=== PATIENT | female | born 1990 | race African-American/Black ===

== ENCOUNTER 2020-01-11 22:23 | Inpatient (IN) | payer SELFPAY ==
[2020-01-11] MEDS ORDERED: Oxytocin/0.9 % Sodium Chloride 30 UNIT/500 ML BAG IV SCH (22:30)
[2020-01-11] MEDS ORDERED: Carboprost Tromethamine 250 MCG/1 ML Amp IM PRN (22:30)
[2020-01-11] MEDS ORDERED: Sodium Chloride 0.9% 2.5 ML Syringe FLUSH PRN (22:30)
[2020-01-11] MEDS ORDERED: Sodium Chloride 0.9% 10 ML SDV IV PRN (22:30)
[2020-01-11] MEDS ORDERED: Nalbuphine 10 MG/1 ML Vial IVPUSH PRN (22:30)
[2020-01-11] MEDS ORDERED: Butorphanol 1 MG/ML SDV IVPUSH PRN (22:30)
[2020-01-11] MEDS ORDERED: Sodium Chloride 0.9% 10 ML Syringe FLUSH PRN (22:30)
[2020-01-11] MEDS ORDERED: Ondansetron 4 MG/2 ML SDV IVPUSH PRN (22:30)
[2020-01-11] MEDS ORDERED: Tranexamic Acid 1,000 MG in Sodium Chloride 0.9% 100 ML IV PRN (22:30)
[2020-01-11] MEDS ORDERED: Misoprostol 200 MCG Tab PO PRN (22:30)
[2020-01-11] MEDS ORDERED: Water For Irrigation,Sterile 1,000 ML Container IRR PRN (22:30)
[2020-01-11] MEDS ORDERED: Lidocaine 1% 50 ML MDV INJECT PRN (22:30)
[2020-01-11] MEDS ORDERED: Methylergonovine 0.2 MG/1 ML Amp IM PRN (22:30)
[2020-01-11] MEDS: Lactated Ringers 1,000 ML IV SCH ×2 (22:30→23:40)
[2020-01-11] MEDS ORDERED: Oxytocin/0.9 % Sodium Chloride 30 UNIT/500 ML BAG ONE (22:44)
[2020-01-11] MEDS ORDERED: fentaNYL 100 MCG/2 ML SDV ONE (22:47)
[2020-01-11] MEDS ORDERED: Bupivicaine/fentaNYL/NS 0 ML ONE (22:48)
[2020-01-11] MEDS ORDERED: Lidocaine 1% 50 ML MDV ONE (23:16)
--- NOTE | 2020-01-12 00:10 | PCM.PREANE ---
Preanesthetic Assessment - Procedure Proposed Procedure: Continuous Labor Epidural - Anesthesia/Transfusion/Family Hx Anesthesia History: No Prior Anesthesia Family History of Anesthesia Reaction: No - Review of Systems General: No Symptoms Pulmonary: No Symptoms Cardiovascular: No Symptoms Gastrointestinal: No Symptoms Neurological: No Symptoms Other: Reports: None - Physical Assessment Height: 5 ft 5 in ASA Class: 2 Mental Status: Alert & Oriented x3 Airway Class: Mallampati = 2 Dentition: Reports: Normal Dentition Thyro-Mental Finger Breadths: 3 Mouth Opening Finger Breadths: 3 ROM/Head Extension: Full Lungs: Clear to Auscultation, Normal Respiratory Effort Cardiovascular: Regular Rate, Regular Rhythm - Lab Values: Laboratory Last Values WBC 10.11 K/uL (4.0-11.0) 01/11/20 22:45 RBC 3.83 M/uL (4.30-5.90) L 01/11/20 22:45 Hgb 12.2 g/dL (12.0-16.0) 01/11/20 22:45 Hct 36.2 % (36.0-46.0) 01/11/20 22:45 MCV 94.5 fL (80.0-98.0) 01/11/20 22:45 MCH 31.9 pg (27.0-32.0) 01/11/20 22:45 MCHC 33.7 g/dL (31.0-37.0) 01/11/20 22:45 RDW Std Deviation 52.8 fl (28.0-62.0) 01/11/20 22:45 RDW Coeff of Erik 15 % (11.0-15.0) 01/11/20 22:45 Plt Count 222 K/uL (150-400) 01/11/20 22:45 MPV 10.50 fL (7.40-12.00) 01/11/20 22:45 Nucleated RBC % 0.0 /100WBC 01/11/20 22:45 Nucleated RBCs # 0 K/uL 01/11/20 22:45 COVID-19 (NASIM) NEGATIVE (NEGATIVE) 01/11/20 22:26 Blood Type O POSITIVE 01/11/20 22:48 Antibody Screen NEGATIVE 01/11/20 22:48 - Allergies Allergies/Adverse Reactions: Allergies Allergy/AdvReac Type Severity Reaction Status Date / Time No Known Allergies Allergy Verified 01/12/20 00:08 - Anesthesia Plan Free Text/Narrative:: Continuous Labor Epidural - Acknowledgements Anesthesia Type Planned: Epidural Pt an Appropriate Candidate for the Planned Anesthesia: Yes Alternatives and Risks of Anesthesia Discussed w Pt/Guardian: Yes Pt/Guardian Understands and Agrees with Anesthesia Plan: Yes PreAnesthesia Questionnaire - Past Health History Medical/Surgical History: Denies Medical/Surgical History HEENT History: Reports: None Cardiovascular History: Reports: None Respiratory History: Reports: None Gastrointestinal History: Reports: None Genitourinary History: Reports: None [employer] History: Reports: : 2 Para: 1 LMP (Approximate): Musculoskeletal History: Reports: None Neurological History: Reports: None Psychiatric History: Reports: None Endocrine/Metabolic History: Reports: None Hematologic History: Reports: None Immunologic History: Reports: None Oncologic (Cancer) History: Reports: None Dermatologic History: Reports: None - Infectious Disease History Infectious Disease History: Reports: None - SUBSTANCE USE Smoking Status *Q: Never Smoker - CURRENT (IN HOUSE) MEDS Current Meds: Current Medications Butorphanol Tartrate (Stadol) 1 mg IVPUSH Q1H PRN PRN Reason: Pain Carboprost Tromethamine (Hemabate Ds) 250 mcg IM ASDIRECTED PRN PRN Reason: Post Hemorrhage Lactated Ringer's (Ringers, Lactated) 1,000 mls @ 150 mls/hr IV ASDIRECTED [facility] Last Admin: 01/11/20 23:40 Dose: 999 mls/hr Documented by: Oxytocin/Sodium Chloride (Oxytocin 30 Unit/500 Ml-Ns) 30 unit in 500 mls @ 999 mls/hr IV TITRATE [facility] Tranexamic Acid 1,000 mg/ (Sodium Chloride) 110 mls @ 660 mls/hr IV ONETIME PRN PRN Reason: Bleeding Lidocaine HCl (Xylocaine 1%) 50 ml INJECT ONETIME PRN PRN Reason: Laceration repair Methylergonovine Maleate (Methergine) 0.2 mg IM ASDIRECTED PRN PRN Reason: Post Hemorrhage Misoprostol (Cytotec) 200 mcg PO ONETIME PRN PRN Reason: Post Hemorrhage Nalbuphine HCl (Nubain) 10 mg IVPUSH Q1H PRN PRN Reason: Pain (severe 7-10) Ondansetron HCl (Zofran) 4 mg IVPUSH Q4H PRN PRN Reason: Nausea/Vomiting Sodium Chloride (Saline Flush) 10 ml FLUSH ASDIRECTED PRN PRN Reason: Keep Vein Open Sodium Chloride (Saline Flush) 2.5 ml FLUSH ASDIRECTED PRN PRN Reason: Keep Vein Open Sodium Chloride (Normal Saline) 10 ml IV ASDIRECTED PRN PRN Reason: IV Use Sterile Water (Sterile Water For Irrigation) 1,000 ml IRR ASDIRECTED PRN PRN Reason: delivery Discontinued Medications Ephedrine Sulfate (Emerphed) Confirm Administered Dose 50 mg .ROUTE .STDUHEM-MED ONE Stop: 01/11/20 23:39 Fentanyl (Sublimaze) Confirm Administered Dose 100 mcg .ROUTE .Purple Blue Bo-MED ONE Stop: 01/11/20 22:48 Oxytocin/Sodium Chloride (Oxytocin 30 Unit/500 Ml-Ns) Confirm Administered Dose 30 unit in 500 mls @ as directed .ROUTE .UCampusMED ONE Stop: 01/11/20 22:45 Fentanyl/Bupivacaine HCl (Fentanyl/Bupivacaine/Ns 2 Mcg-0.125% 250 Ml) Confirm Administered Dose 250 mls @ as directed .ROUTE .STDUHEM-MED ONE Stop: 01/11/20 22:49 Lidocaine HCl (Xylocaine 1%) Confirm Administered Dose 50 ml .ROUTE .STDUHEM-MED ONE Stop: 01/11/20 23:17
[2020-01-12] MEDS ORDERED: Witch Hazel Medicated Pads 40/Jar TOP PRN (01:07)
[2020-01-12] MEDS ORDERED: Bisacodyl 10 MG Supp RECTAL PRN (01:07)
[2020-01-12] MEDS ORDERED: Acetaminophen 500 MG Tab PO PRN ×2 (01:07)
[2020-01-12] MEDS ORDERED: Ibuprofen 400 MG Tab PO PRN (01:07)
[2020-01-12] MEDS ORDERED: Lanolin 100% Cream 7 GM Tube TOP PRN (01:07)
[2020-01-12] MEDS ORDERED: Benzocaine/Menthol 20%-0.5% Spray 78 GM Cannister TOP PRN (01:07)
[2020-01-12] MEDS ORDERED: Docusate Sodium 100 MG Cap PO PRN (01:07)
--- NOTE | 2020-01-12 01:07 | PCM.DEL ---
<Jillian Mendosa - Last Filed: 01/12/20 01:03> L & D Note - General Info Date of Service: 01/12/20 - Delivery Note Labor: Spontaneous Delivery Outcome: Livebirth Delivery Method: Spontaneous Vaginal Delivery-Single Delivery Mode: Spontaneous Presentation: Right Occiput Anterior (OSWALDO) Nuchal Cord: None Amniotic Fluid Description: Clear Episiotomy Type: None Laceration: None Placenta: Intact, Spontaneous Cord: 3 Vessels Estimated Blood Loss: 300 Resuscitation Needed: No : Bulb Syringe, Stimulated, Gulliver Used Score 1 min: 8 Score 5 min: 9 Second Stage Interventions: Reports: Pushing Effectively - General Info Date of Service: 01/12/20 - Patient Data Lab Results Last 24 Hours: Laboratory Results - last 24 hr 01/11/20 01/11/20 01/11/20 Range/Units 22:26 22:45 22:48 WBC 10.11 (4.0-11.0) K/uL RBC 3.83 L (4.30-5.90) M/uL Hgb 12.2 (12.0-16.0) g/dL Hct 36.2 (36.0-46.0) % MCV 94.5 (80.0-98.0) fL MCH 31.9 (27.0-32.0) pg MCHC 33.7 (31.0-37.0) g/dL RDW Std Deviation 52.8 (28.0-62.0) fl RDW Coeff of Erik 15 (11.0-15.0) % Plt Count 222 (150-400) K/uL MPV 10.50 (7.40-12.00) fL Nucleated RBC % 0.0 /100WBC Nucleated RBCs # 0 K/uL COVID-19 (NASIM) NEGATIVE (NEGATIVE) Blood Type O POSITIVE Antibody Screen NEGATIVE Med Orders - Current: Current Medications Butorphanol Tartrate (Stadol) 1 mg IVPUSH Q1H PRN PRN Reason: Pain Carboprost Tromethamine (Hemabate Ds) 250 mcg IM ASDIRECTED PRN PRN Reason: Post Hemorrhage Lactated Ringer's (Ringers, Lactated) 1,000 mls @ 150 mls/hr IV ASDIRECTED [facility] Last Admin: 01/11/20 23:40 Dose: 999 mls/hr Documented by: Oxytocin/Sodium Chloride (Oxytocin 30 Unit/500 Ml-Ns) 30 unit in 500 mls @ 999 mls/hr IV TITRATE [facility] Last Admin: 01/12/20 00:53 Dose: 999 mls/hr Documented by: Tranexamic Acid 1,000 mg/ (Sodium Chloride) 110 mls @ 660 mls/hr IV ONETIME PRN PRN Reason: Bleeding Lidocaine HCl (Xylocaine 1%) 50 ml INJECT ONETIME PRN PRN Reason: Laceration repair Methylergonovine Maleate (Methergine) 0.2 mg IM ASDIRECTED PRN PRN Reason: Post Hemorrhage Misoprostol (Cytotec) 200 mcg PO ONETIME PRN PRN Reason: Post Hemorrhage Nalbuphine HCl (Nubain) 10 mg IVPUSH Q1H PRN PRN Reason: Pain (severe 7-10) Ondansetron HCl (Zofran) 4 mg IVPUSH Q4H PRN PRN Reason: Nausea/Vomiting Sodium Chloride (Saline Flush) 10 ml FLUSH ASDIRECTED PRN PRN Reason: Keep Vein Open Sodium Chloride (Saline Flush) 2.5 ml FLUSH ASDIRECTED PRN PRN Reason: Keep Vein Open Sodium Chloride (Normal Saline) 10 ml IV ASDIRECTED PRN PRN Reason: IV Use Sterile Water (Sterile Water For Irrigation) 1,000 ml IRR ASDIRECTED PRN PRN Reason: delivery Discontinued Medications Ephedrine Sulfate (Emerphed) Confirm Administered Dose 50 mg .ROUTE .STK-MED ONE Stop: 01/11/20 23:39 Fentanyl (Sublimaze) Confirm Administered Dose 100 mcg .ROUTE .STK-MED ONE Stop: 01/11/20 22:48 Oxytocin/Sodium Chloride (Oxytocin 30 Unit/500 Ml-Ns) Confirm Administered Dose 30 unit in 500 mls @ as directed .ROUTE .STK-MED ONE Stop: 01/11/20 22:45 Fentanyl/Bupivacaine HCl (Fentanyl/Bupivacaine/Ns 2 Mcg-0.125% 250 Ml) Confirm Administered Dose 250 mls @ as directed .ROUTE .STK-MED ONE Stop: 01/11/20 22:49 Lidocaine HCl (Xylocaine 1%) Confirm Administered Dose 50 ml .ROUTE .STK-MED ONE Stop: 01/11/20 23:17 - Problem List & Annotations (1) Vaginal delivery SNOMED Code(s): 492306140 Code(s): O80 - ENCOUNTER FOR FULL-TERM UNCOMPLICATED DELIVERY Status: Acute Current Visit: Yes - Problem List Review Problem List Initiated/Reviewed/Updated: Yes - Assessment Assessment:: 29yo female s/p - Plan Plan:: -routine post care - <Tammy Rojas - Last Filed: 01/12/20 01:11> L & D Note - Delivery Note Provider: Tammy Rojas Delivery Comments (Free Text/Narrative):: 3500 gm - Patient Data Lab Results Last 24 Hours: Laboratory Results - last 24 hr 01/11/20 01/11/20 01/11/20 Range/Units 22:26 22:45 22:48 WBC 10.11 (4.0-11.0) K/uL RBC 3.83 L (4.30-5.90) M/uL Hgb 12.2 (12.0-16.0) g/dL Hct 36.2 (36.0-46.0) % MCV 94.5 (80.0-98.0) fL MCH 31.9 (27.0-32.0) pg MCHC 33.7 (31.0-37.0) g/dL RDW Std Deviation 52.8 (28.0-62.0) fl RDW Coeff of Erik 15 (11.0-15.0) % Plt Count 222 (150-400) K/uL MPV 10.50 (7.40-12.00) fL Nucleated RBC % 0.0 /100WBC Nucleated RBCs # 0 K/uL COVID-19 (NASIM) NEGATIVE (NEGATIVE) Blood Type O POSITIVE Antibody Screen NEGATIVE Med Orders - Current: Current Medications Acetaminophen (Tylenol Extra Strength) 500 mg PO Q4H PRN PRN Reason: Pain Acetaminophen (Tylenol Extra Strength) 1,000 mg PO Q4H PRN PRN Reason: Pain Benzocaine/Menthol (Dermoplast Pain Relief 20%-0.5% [place]) 78 gm TOP ASDIRECTED PRN PRN Reason: Perineal Comfort Measure Bisacodyl (Dulcolax) 10 mg RECTAL ONETIME PRN PRN Reason: Constipation Carboprost Tromethamine (Hemabate Ds) 250 mcg IM ASDIRECTED PRN PRN Reason: Post Hemorrhage Docusate Sodium (Colace) 100 mg PO BID PRN PRN Reason: Constipation Emollient Ointment (Lansinoh Hpa) 0 gm TOP ASDIRECTED PRN PRN Reason: Sore Nipples Lactated Ringer's (Ringers, Lactated) 1,000 mls @ 150 mls/hr IV ASDIRECTED REPLACED BY [facility] Last Admin: 01/11/20 23:40 Dose: 999 mls/hr Documented by: Oxytocin/Sodium Chloride (Oxytocin 30 Unit/500 Ml-Ns) 30 unit in 500 mls @ 999 mls/hr IV TITRATE REPLACED BY [facility] Last Admin: 01/12/20 00:53 Dose: 999 mls/hr Documented by: Tranexamic Acid 1,000 mg/ (Sodium Chloride) 110 mls @ 660 mls/hr IV ONETIME PRN PRN Reason: Bleeding Ibuprofen (Motrin) 400 mg PO Q4H PRN PRN Reason: Pain Ibuprofen (Motrin) 800 mg PO Q6H PRN PRN Reason: Pain Lidocaine HCl (Xylocaine 1%) 50 ml INJECT ONETIME PRN PRN Reason: Laceration repair Methylergonovine Maleate (Methergine) 0.2 mg IM ASDIRECTED PRN PRN Reason: Post Hemorrhage Nalbuphine HCl (Nubain) 10 mg IVPUSH Q1H PRN PRN Reason: Pain (severe 7-10) Ondansetron HCl (Zofran) 4 mg IVPUSH Q4H PRN PRN Reason: Nausea/Vomiting Oxycodone HCl (Oxycodone) 5 mg PO Q2H PRN PRN Reason: Pain Sodium Chloride (Saline Flush) 10 ml FLUSH ASDIRECTED PRN PRN Reason: Keep Vein Open Sodium Chloride (Saline Flush) 2.5 ml FLUSH ASDIRECTED PRN PRN Reason: Keep Vein Open Sodium Chloride (Normal Saline) 10 ml IV ASDIRECTED PRN PRN Reason: IV Use Sterile Water (Sterile Water For Irrigation) 1,000 ml IRR ASDIRECTED PRN PRN Reason: delivery Witch Nena (Tucks) 1 pad TOP ASDIRECTED PRN PRN Reason: comfort care Discontinued Medications Butorphanol Tartrate (Stadol) 1 mg IVPUSH Q1H PRN PRN Reason: Pain Ephedrine Sulfate (Emerphed) Confirm Administered Dose 50 mg .ROUTE .STK-MED ONE Stop: 01/11/20 23:39 Fentanyl (Sublimaze) Confirm Administered Dose 100 mcg .ROUTE .STK-MED ONE Stop: 01/11/20 22:48 Oxytocin/Sodium Chloride (Oxytocin 30 Unit/500 Ml-Ns) Confirm Administered Dose 30 unit in 500 mls @ as directed .ROUTE .STK-MED ONE Stop: 01/11/20 22:45 Fentanyl/Bupivacaine HCl (Fentanyl/Bupivacaine/Ns 2 Mcg-0.125% 250 Ml) Confirm Administered Dose 250 mls @ as directed .ROUTE .STK-MED ONE Stop: 01/11/20 22:49 Lidocaine HCl (Xylocaine 1%) Confirm Administered Dose 50 ml .ROUTE .STK-MED ONE Stop: 01/11/20 23:17 Misoprostol (Cytotec) 200 mcg PO ONETIME PRN PRN Reason: Post Hemorrhage - Problem List & Annotations (1) Vaginal delivery SNOMED Code(s): 772724023 Code(s): O80 - ENCOUNTER FOR FULL-TERM UNCOMPLICATED DELIVERY Status: Acute Current Visit: Yes - Problem List Review Problem List Initiated/Reviewed/Updated: Yes - My Orders Last 24 Hours: My Active Orders 01/11/20 22:30 Carboprost Tromethamine [Hemabate DS] 250 mcg IM ASDIRECTED PRN Lactated Ringers [Ringers, Lactated] 1,000 ml IV ASDIRECTED Lidocaine 1% [Xylocaine 1%] 50 ml INJECT ONETIME PRN Methylergonovine [Methergine] 0.2 mg IM ASDIRECTED PRN Nalbuphine [Nubain] 10 mg IVPUSH Q1H PRN Ondansetron [Zofran] 4 mg IVPUSH Q4H PRN Oxytocin/0.9 % Sodium Chloride [Oxytocin 30 Unit/500 ML-NS] 30 unit in 500 ml IV TITRATE Sodium Chloride 0.9% [Normal Saline] 10 ml IV ASDIRECTED PRN Sodium Chloride 0.9% [Saline Flush] 10 ml FLUSH ASDIRECTED PRN Sodium Chloride 0.9% [Saline Flush] 2.5 ml FLUSH ASDIRECTED PRN Tranexamic Acid [Cyklokapron] 1,000 mg Sodium Chloride 0.9% [Normal Saline] 100 ml IV ONETIME Water For Irrigation,Sterile [Sterile Water for Irrigation] 1,000 ml IRR ASDIRECTED PRN Resuscitation Status Routine 01/11/20 22:31 Patient Status [ADT] Routine May Shower [RC] ASDIRECTED Notify Provider [RC] PRN Up ad Martha [RC] ASDIRECTED Vital Signs [RC] PER UNIT ROUTINE Peripheral IV Insertion Adult [OM.PC] Routine 01/11/20 22:45 RPR (SYPHILIS SERO) W/ RFLX [REF] Routine 01/12/20 01:07 Notify Provider Vital Signs [RC] ASDIRECTED Acetaminophen [Tylenol Extra Strength] 1,000 mg PO Q4H PRN Acetaminophen [Tylenol Extra Strength] 500 mg PO Q4H PRN Benzocaine/Menthol [Dermoplast Pain Relief 20%-0.5% [place]] 78 gm TOP ASDIRECTED PRN Docusate Sodium [Colace] 100 mg PO BID PRN Ibuprofen [Motrin] 400 mg PO Q4H PRN Ibuprofen [Motrin] 800 mg PO Q6H PRN Lanolin [Lansinoh HPA] See Dose Instructions TOP ASDIRECTED PRN bisacodyL [Dulcolax] 10 mg RECTAL ONETIME PRN oxyCODONE 5 mg PO Q2H PRN witch Nena [Tucks] 1 pad TOP ASDIRECTED PRN 01/12/20 01:08 Patient Status [ADT] Routine May Shower [RC] ASDIRECTED Up ad Martha [RC] ASDIRECTED Vital Signs [RC] PER UNIT ROUTINE Assess Lochia [WOMSER] Per Unit Routine Assess Uterine Involution [WOMSER] Per Unit Routine Ice Therapy [OM.PC] Per Unit Routine Perineal Care [OM.PC] Per Unit Routine Peripheral IV Discontinue [OM.PC] Routine Sitz Bath [OM.PC] Per Unit Routine 01/12/20 01:09 Cooling Warming Measures [RC] ASDIRECTED BLOOD GAS ARTERIAL UMBILICAL [BG] Routine BLOOD GAS VENOUS UMBILICAL [BG] Routine 01/12/20 Breakfast Regular Diet [DIET] 01/12/20 15:00 HEMOGLOBIN/HEMATOCRIT,HH [HEME] Routine
--- NOTE | 2020-01-12 08:47 | OR ---
SURGEON: Tammy Rojas M.D. DATE OF PROCEDURE: 01/12/2020 PREOPERATIVE DIAGNOSES: 1. A 40-2/7 weeks' gestational age. 2. Labor. POSTOPERATIVE DIAGNOSES: 1. A 40-2/7 weeks' gestational age. 2. Labor. PROCEDURE: Spontaneous vaginal delivery, intact perineum. PRIMARY SURGEON: Tammy Rojas M.D. FUND DIRECTOR: Jillian Mendosa, MS4 ANESTHESIA: Epidural. ESTIMATED BLOOD LOSS: 300 mL. COMPLICATIONS: None known. FINDINGS: Viable male. score 8 at one minute and 9 at five minutes. Weight of 3500 g. Spontaneous delivery, intact placenta, 3-vessel cord. DISPOSITION: Infant to nursery, mom in LDRP, stable. PROCEDURE DETAILS: Joann is a 29-year-old, G2, P1, at 40-2/7 weeks' gestational age who presents on the evening of 01/11/2020 with regular contractions. On initial examination, she was found to be 8 cm. She was admitted. Routine labs drawn. IV hydration was initiated. She underwent regional anesthesia in the form of epidural, became more comfortable, and quickly progressed to complete. She began pushing efforts, and pushed readily to a +2 station. I was called for delivery. heart tones 120s. She continued with pushing efforts, had spontaneous rupture of membranes with light meconium fluid noted to be present. With continued pushing efforts, she was able to push to a +3 station, followed by delivery of the 's head, anterior shoulder, posterior shoulder, remainder of body without difficulty. Infant's oropharynx and nares were bulb suctioned. was handed off to his mother, attending nursery staff and Respiratory Therapy at her side. After a delay, cord was clamped x2 and cut. Cord arterial, cord venous, cord blood sampling obtained. Light pressure was applied while the placenta was delivered spontaneously intact. Vigorous fundal uterine massage was then applied while 30 units of Pitocin was delivered in 500 mL of IV fluid. Upon inspection of cervix, vaginal sidewall, and perineum, these were found to be intact. The patient has tolerated the procedure well overall. She will remain in LDRP in stable condition, infant to nursery. CIARAN / FLOWER /[id number]
--- NOTE | 2020-01-12 09:38 | PCM48HPAN ---
Post Anesthesia Note - EVALUATION WITHIN 48HRS OF ANESTHETIC Vital Signs in Normal Range: Yes Patient Participated in Evaluation: No (Patient sleeping. present.) Respiratory Function Stable: Yes Airway Patent: Yes Cardiovascular Function Stable: Yes Hydration Status Stable: Yes Pain Control Satisfactory: Yes Nausea and Vomiting Control Satisfactory: Yes Mental Status Recovered: Yes - COMMENTS/OBSERVATIONS Free Text/Narrative:: Patient sleeping. present and said patient had complaint of back discomfort but otherwise without complications. Reinforced that the discomfort is very common with epidural placement and should improved each day. Encouraged to reach out to anesthesia while in the hospital if there are any other concerns or worsening issues related to the epidural or pain control. If after discharge, encouraged to seek out OB provider should there be any further concerns or worsening symptoms. No further questions or concerns at this time.
[2020-01-12] MEDS: Ibuprofen 800 MG Tab PO PRN ×2 (12:52→22:08)
[2020-01-12] MEDS: Amoxicillin/Clavulanate K 875-125 MG Tab PO SCH ×2 (12:52→23:14)
[2020-01-12] MEDS: oxyCODONE 5 MG Tab PO PRN ×2 (16:58→23:13)
[2020-01-13] MEDS: Ibuprofen 800 MG Tab PO PRN ×2 (04:31→14:29)
--- NOTE | 2020-01-13 07:54 | PCM48HPAN ---
Post Anesthesia Note - EVALUATION WITHIN 48HRS OF ANESTHETIC Vital Signs in Normal Range: Yes Patient Participated in Evaluation: Yes Airway Patent: Yes Cardiovascular Function Stable: Yes Hydration Status Stable: Yes Pain Control Satisfactory: Yes Nausea and Vomiting Control Satisfactory: Yes Mental Status Recovered: Yes Vital Signs: Last Vital Signs Temp 36.8 C 01/13/20 04:31 Pulse 89 01/13/20 04:31 Resp 16 01/13/20 04:31 BP 87/54 L 01/13/20 04:31 Pulse Ox 99 01/13/20 04:31 - COMMENTS/OBSERVATIONS Free Text/Narrative:: Anes Note Post Post dural puncture headache. Patient reports mild headache this morning. 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
--- NOTE | 2020-01-13 08:40 | PCM.PNPP ---
<Saw Tillman - Last Filed: 01/13/20 08:35> - General Info Date of Service: 01/13/20 Functional Status: Reports: Pain Controlled - Review of Systems General: Reports: No Symptoms HEENT: Reports: No Symptoms Pulmonary: Reports: No Symptoms Cardiovascular: Reports: No Symptoms Gastrointestinal: Reports: No Symptoms Genitourinary: Reports: No Symptoms Musculoskeletal: Reports: No Symptoms Skin: Reports: No Symptoms Neurological: Reports: No Symptoms Psychiatric: Reports: No Symptoms - General Info Date of Service: 01/13/20 - Patient Data Vital Signs - Most Recent: Last Vital Signs Temp 36.6 C 01/13/20 08:00 Pulse 80 01/13/20 08:00 Resp 12 01/13/20 08:00 BP 108/89 01/13/20 08:00 Pulse Ox 98 01/13/20 08:00 Weight - Most Recent: 76.204 kg I&O - Last 24 Hours: Intake & Output 01/12/20 01/13/20 01/13/20 22:59 06:59 14:59 Intake Total 300 Output Total 250 Balance 50 Med Orders - Current: Current Medications Acetaminophen (Tylenol Extra Strength) 500 mg PO Q4H PRN PRN Reason: Pain Acetaminophen (Tylenol Extra Strength) 1,000 mg PO Q4H PRN PRN Reason: Pain Last Admin: 01/13/20 04:31 Dose: 1,000 mg Documented by: Amoxicillin/Clavulanate Potassium (Augmentin 875 Mg/125 Mg) 1 tab PO Q12HR RANDY Last Admin: 01/12/20 23:14 Dose: 1 tab Documented by: Benzocaine/Menthol (Dermoplast Pain Relief 20%-0.5% [place]) 78 gm TOP ASDIRECTED PRN PRN Reason: Perineal Comfort Measure Bisacodyl (Dulcolax) 10 mg RECTAL ONETIME PRN PRN Reason: Constipation Carboprost Tromethamine (Hemabate Ds) 250 mcg IM ASDIRECTED PRN PRN Reason: Post Hemorrhage Docusate Sodium (Colace) 100 mg PO BID PRN PRN Reason: Constipation Emollient Ointment (Lansinoh Hpa) 0 gm TOP ASDIRECTED PRN PRN Reason: Sore Nipples Lactated Ringer's (Ringers, Lactated) 1,000 mls @ 150 mls/hr IV ASDIRECTED [facility] Last Admin: 01/11/20 23:40 Dose: 999 mls/hr Documented by: Oxytocin/Sodium Chloride (Oxytocin 30 Unit/500 Ml-Ns) 30 unit in 500 mls @ 999 mls/hr IV TITRATE [facility] Last Admin: 01/12/20 00:53 Dose: 999 mls/hr Documented by: Tranexamic Acid 1,000 mg/ (Sodium Chloride) 110 mls @ 660 mls/hr IV ONETIME PRN PRN Reason: Bleeding Ibuprofen (Motrin) 400 mg PO Q4H PRN PRN Reason: Pain Ibuprofen (Motrin) 800 mg PO Q6H PRN PRN Reason: Pain Last Admin: 01/13/20 04:31 Dose: 800 mg Documented by: Lidocaine HCl (Xylocaine 1%) 50 ml INJECT ONETIME PRN PRN Reason: Laceration repair Methylergonovine Maleate (Methergine) 0.2 mg IM ASDIRECTED PRN PRN Reason: Post Hemorrhage Nalbuphine HCl (Nubain) 10 mg IVPUSH Q1H PRN PRN Reason: Pain (severe 7-10) Ondansetron HCl (Zofran) 4 mg IVPUSH Q4H PRN PRN Reason: Nausea/Vomiting Oxycodone HCl (Oxycodone) 5 mg PO Q2H PRN PRN Reason: Pain Last Admin: 01/12/20 23:13 Dose: 5 mg Documented by: Sodium Chloride (Saline Flush) 10 ml FLUSH ASDIRECTED PRN PRN Reason: Keep Vein Open Sodium Chloride (Saline Flush) 2.5 ml FLUSH ASDIRECTED PRN PRN Reason: Keep Vein Open Sodium Chloride (Normal Saline) 10 ml IV ASDIRECTED PRN PRN Reason: IV Use Sterile Water (Sterile Water For Irrigation) 1,000 ml IRR ASDIRECTED PRN PRN Reason: delivery Witch Nena (Tucks) 1 pad TOP ASDIRECTED PRN PRN Reason: comfort care Discontinued Medications Butorphanol Tartrate (Stadol) 1 mg IVPUSH Q1H PRN PRN Reason: Pain Ephedrine Sulfate (Emerphed) Confirm Administered Dose 50 mg .ROUTE .STK-MED ONE Stop: 01/11/20 23:39 Last Admin: 01/12/20 17:48 Dose: Not Given Documented by: Fentanyl (Sublimaze) Confirm Administered Dose 100 mcg .ROUTE .STK-MED ONE Stop: 01/11/20 22:48 Last Admin: 01/12/20 17:47 Dose: Not Given Documented by: Oxytocin/Sodium Chloride (Oxytocin 30 Unit/500 Ml-Ns) Confirm Administered Dose 30 unit in 500 mls @ as directed .ROUTE .STK-MED ONE Stop: 01/11/20 22:45 Last Admin: 01/12/20 10:38 Dose: Not Given Documented by: Fentanyl/Bupivacaine HCl (Fentanyl/Bupivacaine/Ns 2 Mcg-0.125% 250 Ml) Confirm Administered Dose 250 mls @ as directed .ROUTE .STK-MED ONE Stop: 01/11/20 22:49 Last Admin: 01/12/20 17:47 Dose: Not Given Documented by: Lidocaine HCl (Xylocaine 1%) Confirm Administered Dose 50 ml .ROUTE .STK-MED ONE Stop: 01/11/20 23:17 Last Admin: 01/12/20 17:48 Dose: Not Given Documented by: Misoprostol (Cytotec) 200 mcg PO ONETIME PRN PRN Reason: Post Hemorrhage - Infant Interaction Disposition, : [place] in Room with Family Infant Interaction: Holding Infant Feeding: Attempted ; Nursed Fair/Poor, Bottle Fed Support Person: - Recovery Exam Fundal Tone: Firm Fundal Level: At Umbilicus Fundal Placement: Midline Lochia Amount: Scant, Small Lochia Color: Rubra/Red Perineum Description: Intact, Minimal Bruising/Swelling Episiotomy/Laceration: None Bladder Status: Voiding Urinary Elimination: Voided - Exam General: Alert, Oriented, Cooperative, No Acute Distress HEENT: Pupils Equal, Pupils Reactive, EOMI, Mucous Membr. Moist/[place] Neck: Supple, No JVD Lungs: Clear to Auscultation, Normal Respiratory Effort Cardiovascular: Regular Rate, Regular Rhythm GI/Abdominal Exam: Normal Bowel Sounds, Soft, Non-Tender, No Organomegaly Extremities: Normal Inspection, No Pedal Edema, Normal Capillary Refill Skin: Warm, Moist Neurological: No New Focal Deficit Psy/Mental Status: Alert, Normal Affect, Normal Mood - Problem List Review Problem List Initiated/Reviewed/Updated: Yes - Assessment Assessment:: 29yo female s/p - Plan Plan:: -Routine post care -Needs help applying for WIC <Mishel Carrera - Last Filed: 01/13/20 10:34> - General Info Functional Status: Reports: Tolerating Diet, Ambulating, Urinating - Patient Data Vital Signs - Most Recent: Last Vital Signs Temp 36.6 C 01/13/20 08:00 Pulse 80 01/13/20 08:00 Resp 12 01/13/20 08:00 BP 108/89 01/13/20 08:00 Pulse Ox 98 01/13/20 08:00 I&O - Last 24 Hours: Intake & Output 01/12/20 01/13/20 01/13/20 22:59 06:59 14:59 Intake Total 300 Output Total 250 Balance 50 Med Orders - Current: Current Medications Acetaminophen (Tylenol Extra Strength) 500 mg PO Q4H PRN PRN Reason: Pain Acetaminophen (Tylenol Extra Strength) 1,000 mg PO Q4H PRN PRN Reason: Pain Last Admin: 01/13/20 04:31 Dose: 1,000 mg Documented by: Amoxicillin/Clavulanate Potassium (Augmentin 875 Mg/125 Mg) 1 tab PO Q12HR [facility] Last Admin: 01/12/20 23:14 Dose: 1 tab Documented by: Benzocaine/Menthol (Dermoplast Pain Relief 20%-0.5% [place]) 78 gm TOP ASDIRECTED PRN PRN Reason: Perineal Comfort Measure Bisacodyl (Dulcolax) 10 mg RECTAL ONETIME PRN PRN Reason: Constipation Carboprost Tromethamine (Hemabate Ds) 250 mcg IM ASDIRECTED PRN PRN Reason: Post Hemorrhage Docusate Sodium (Colace) 100 mg PO BID PRN PRN Reason: Constipation Emollient Ointment (Lansinoh Hpa) 0 gm TOP ASDIRECTED PRN PRN Reason: Sore Nipples Lactated Ringer's (Ringers, Lactated) 1,000 mls @ 150 mls/hr IV ASDIRECTED [facility] Last Admin: 01/11/20 23:40 Dose: 999 mls/hr Documented by: Oxytocin/Sodium Chloride (Oxytocin 30 Unit/500 Ml-Ns) 30 unit in 500 mls @ 999 mls/hr IV TITRATE [facility] Last Admin: 01/12/20 00:53 Dose: 999 mls/hr Documented by: Tranexamic Acid 1,000 mg/ (Sodium Chloride) 110 mls @ 660 mls/hr IV ONETIME PRN PRN Reason: Bleeding Ibuprofen (Motrin) 400 mg PO Q4H PRN PRN Reason: Pain Ibuprofen (Motrin) 800 mg PO Q6H PRN PRN Reason: Pain Last Admin: 01/13/20 04:31 Dose: 800 mg Documented by: Lidocaine HCl (Xylocaine 1%) 50 ml INJECT ONETIME PRN PRN Reason: Laceration repair Methylergonovine Maleate (Methergine) 0.2 mg IM ASDIRECTED PRN PRN Reason: Post Hemorrhage Nalbuphine HCl (Nubain) 10 mg IVPUSH Q1H PRN PRN Reason: Pain (severe 7-10) Ondansetron HCl (Zofran) 4 mg IVPUSH Q4H PRN PRN Reason: Nausea/Vomiting Oxycodone HCl (Oxycodone) 5 mg PO Q2H PRN PRN Reason: Pain Last Admin: 01/12/20 23:13 Dose: 5 mg Documented by: Sodium Chloride (Saline Flush) 10 ml FLUSH ASDIRECTED PRN PRN Reason: Keep Vein Open Sodium Chloride (Saline Flush) 2.5 ml FLUSH ASDIRECTED PRN PRN Reason: Keep Vein Open Sodium Chloride (Normal Saline) 10 ml IV ASDIRECTED PRN PRN Reason: IV Use Sterile Water (Sterile Water For Irrigation) 1,000 ml IRR ASDIRECTED PRN PRN Reason: delivery Witch Nena (Tucks) 1 pad TOP ASDIRECTED PRN PRN Reason: comfort care Discontinued Medications Butorphanol Tartrate (Stadol) 1 mg IVPUSH Q1H PRN PRN Reason: Pain Ephedrine Sulfate (Emerphed) Confirm Administered Dose 50 mg .ROUTE .STK-MED ONE Stop: 01/11/20 23:39 Last Admin: 01/12/20 17:48 Dose: Not Given Documented by: Fentanyl (Sublimaze) Confirm Administered Dose 100 mcg .ROUTE .STK-MED ONE Stop: 01/11/20 22:48 Last Admin: 01/12/20 17:47 Dose: Not Given Documented by: Oxytocin/Sodium Chloride (Oxytocin 30 Unit/500 Ml-Ns) Confirm Administered Dose 30 unit in 500 mls @ as directed .ROUTE .STK-MED ONE Stop: 01/11/20 22:45 Last Admin: 01/12/20 10:38 Dose: Not Given Documented by: Fentanyl/Bupivacaine HCl (Fentanyl/Bupivacaine/Ns 2 Mcg-0.125% 250 Ml) Confirm Administered Dose 250 mls @ as directed .ROUTE .STK-MED ONE Stop: 01/11/20 22:49 Last Admin: 01/12/20 17:47 Dose: Not Given Documented by: Lidocaine HCl (Xylocaine 1%) Confirm Administered Dose 50 ml .ROUTE .STK-MED ONE Stop: 01/11/20 23:17 Last Admin: 01/12/20 17:48 Dose: Not Given Documented by: Misoprostol (Cytotec) 200 mcg PO ONETIME PRN PRN Reason: Post Hemorrhage - Problem List & Annotations (1) Vaginal delivery SNOMED Code(s): 605246991 Code(s): O80 - ENCOUNTER FOR FULL-TERM UNCOMPLICATED DELIVERY Status: Acute Current Visit: Yes - My Orders Last 24 Hours: My Active Orders 01/12/20 18:11 Communication Order [RC] ROUTINE 01/13/20 10:32 Ready for Discharge [RC] PER UNIT ROUTINE - Plan Plan:: I have reviewed and agree with the above. No difficulty voiding overnight. PPD#1 s/p . Patient desires discharge home today if infant cleared by organizational effectiveness consultant. Reviewed discharge instructions.
[2020-01-13] MEDS: Amoxicillin/Clavulanate K 875-125 MG Tab PO SCH (10:57)
== END 2020-01-13 16:28 | disposition home or self-care (01) | DRG 807 ==
LOC: MW.OBCHECK 22:23 → MW.OB 22:31 → OBSVTOIN 01-12 00:50 → MW.OB 01-12 08:10
PROVIDERS: ADMIT Obstetrics & Gynecology; ATTEND Obstetrics & Gynecology
PROC: 10E0XZZ Delivery of Products of Conception, External Approach (ICD-10-PCS; principal; 2020-01-12)
PROC: 3E0R3BZ Introduction of Anesthetic Agent into Spinal Canal, Percutaneous Approach (ICD-10-PCS; 2020-01-12)
DX: O48.0 Post-term pregnancy (principal); Z37.0 Single live birth; Z3A.40 40 weeks gestation of pregnancy; Z20.828 Contact with and (suspected) exposure to other viral communicable diseases; O77.0 Labor and delivery complicated by meconium in amniotic fluid
CPT/HCPCS: 36415; 51702; 59025; 59409; 82803; 85014; 85018; 85027; 86592; 86850; 86900; 86901; A9270-GY; J2590; J3010; J7120; U0002

== ENCOUNTER 2020-01-28 05:10 | Observation (INO) | payer SELFPAY ==
[2020-01-28] MEDS ORDERED: Sodium Chloride 0.9% 10 ML Syringe FLUSH PRN ×2 (05:12→07:51)
[2020-01-28] MEDS ORDERED: Sodium Chloride 0.9% 1,000 ML IV ONE (05:12)
[2020-01-28] MEDS ORDERED: Sodium Chloride 0.9% 2.5 ML Syringe FLUSH PRN ×2 (05:12→07:51)
--- NOTE | 2020-01-28 05:15 | EDM.PDOC ---
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 She had a baby a couple weeks ago, according to her and the note by WELDING LEAD BURNER, there were no immediate complications, no vaginal tears or problems with the cervix. She states that she has had some light bleeding, seemingly normal amount and had been lessening over the last 2 weeks and then tonight she woke up from sleep and found that she had significant amount of vaginal bleeding. She says that she does not really have any pain associated with it. Denies abdominal pain, chest pain, shortness of breath, fever. Denies any recent trauma or injury. States that just her of happened out of the blue.] Review of systems: As per history of present illness and below otherwise all systems reviewed and negative. Past medical history: As per history of present illness and as reviewed below otherwise noncontributory. Surgical history: As per history of present illness and as reviewed below otherwise noncontributory. Social history: No reported history of drug or alcohol abuse. Family history: As per history of present illness and as reviewed below otherwise noncontri butory. Physical exam: General: Awake, alert, no acute distress, A&O X3. HEENT: Atraumatic, normocephalic, pupils reactive, negative for conjunctival pallor or scleral icterus, mucous membranes moist, throat clear, neck supple, nontender, trachea midline. Lungs: Clear to auscultation, breath sounds equal bilaterally, chest nontender. Heart: RRR, normal S1S2, no JVD. Abdomen: Soft, nondistended, nontender. Negative for masses or hepatosplenomegaly. Negative for costovertebral tenderness. Pelvis: Stable nontender. Genitourinary: Pelvic exam: [employer]: dark clots and blood being extruded from cervix. no evidence for vaginal lacerations. Rectal: Deferred. Extremities: Atraumatic, no edema, Neurovascular unremarkable. Neuro: Motor and sensory grossly intact throughout. Exam nonfocal. Diagnostics: [] Therapeutics: [] Impression: [] Plan: [] Definitive disposition and diagnosis as appropriate pending reevaluation and review of above. - Related Data Allergies Allergy/AdvReac Type Severity Reaction Status Date / Time No Known Allergies Allergy Verified 01/28/20 05:33 Home Meds: Home Meds . [No Known Home Meds] 01/28/20 [History] Past Medical History - Past Health History Medical/Surgical History: Denies Medical/Surgical History HEENT History: Reports: None Cardiovascular History: Reports: None Respiratory History: Reports: None Gastrointestinal History: Reports: None Genitourinary History: Reports: None WELDING LEAD BURNER History: Reports: Musculoskeletal History: Reports: None Neurological History: Reports: None Psychiatric History: Reports: None Endocrine/Metabolic History: Reports: None Hematologic History: Reports: None Immunologic History: Reports: None Oncologic (Cancer) History: Reports: None Dermatologic History: Reports: None - Infectious Disease History Infectious Disease History: Reports: None Social & Family History - Caffeine Use Caffeine Use: Reports: None ED ROS GENERAL - Review of Systems Review Of Systems: Comprehensive ROS is negative, except as noted in HPI. ED EXAM, RENAL/ - Physical Exam Exam: See Below (see h and p) Course - Vital Signs Text/Narrative:: [id number]: Dr Villaseñor OBGYN on-call for [facility], returned page. Will look at US images and call back with rec's Patient signed out to oncoming physician (Dr. Pool) for final dispo Departure - Departure Disposition: Refer to Observation Clinical Impression: Pre-eclampsia - Discharge Information <Kwabena Pool - Last Filed: 01/28/20 14:13> ED ROS GENERAL - Review of Systems Review Of Systems: See Below ED EXAM, RENAL/ - Physical Exam Exam: See Below Course - Vital Signs Text/Narrative:: Dr Villaseñor saw the patient in the ED at 7:50 AM and wants to admit her for her hypertension. Last Recorded V/S: Last Vital Signs Temp 36.3 C 01/28/20 05:10 Pulse 76 01/28/20 10:03 Resp 18 01/28/20 06:38 BP 127/86 01/28/20 10:03 Pulse Ox 98 01/28/20 10:03 - Orders/Labs/Meds Orders: Active Orders 24 hr Category Date Time Status Sodium Chloride 0.9% [Saline Flush] Med 01/28/20 05:12 Active 10 ml FLUSH ASDIRECTED PRN Sodium Chloride 0.9% [Saline Flush] Med 01/28/20 05:12 Active 2.5 ml FLUSH ASDIRECTED PRN Saline Lock Insert [OM.PC] Stat Oth 01/28/20 05:12 Ordered Medication Orders Calcium Gluconate (Calcium Gluconate) 1 gm IV ASDIRECTED PRN PRN Reason: respiratory distress Magnesium Sulfate (Magnesium Sulfate In Water Premix) 20 gm in 500 mls @ 50 mls/hr IV ASDIRECTED RANDY; Protocol Last Admin: 01/28/20 12:38 Dose: 2 gm/hr, 50 mls/hr Documented by: MARTINAIGLUC Sodium Chloride (Saline Flush) 10 ml FLUSH ASDIRECTED PRN PRN Reason: Keep Vein Open Last Admin: 01/28/20 05:31 Dose: 10 ml Documented by: FEDLKER Sodium Chloride (Saline Flush) 2.5 ml FLUSH ASDIRECTED PRN PRN Reason: Keep Vein Open Last Admin: 01/28/20 05:31 Dose: 2.5 ml Documented by: FEDLKER Sodium Chloride (Saline Flush) 10 ml FLUSH ASDIRECTED PRN PRN Reason: Keep Vein Open Sodium Chloride (Saline Flush) 2.5 ml FLUSH ASDIRECTED PRN PRN Reason: Keep Vein Open Sodium Chloride (Normal Saline) 10 ml IV ASDIRECTED PRN PRN Reason: IV Use Labs: Laboratory Tests 01/28/20 01/28/20 01/28/20 Range/Units 04:15 04:15 04:15 WBC 4.82 (4.0-11.0) K/uL RBC 3.46 L (4.30-5.90) M/uL Hgb 10.6 L (12.0-16.0) g/dL Hct 32.6 L (36.0-46.0) % MCV 94.2 (80.0-98.0) fL MCH 30.6 (27.0-32.0) pg MCHC 32.5 (31.0-37.0) g/dL RDW Std Deviation 50.5 (28.0-62.0) fl RDW Coeff of Erik 15 (11.0-15.0) % Plt Count 404 H (150-400) K/uL MPV 9.50 (7.40-12.00) fL Neut % (Auto) 45.1 L (48.0-80.0) % Lymph % (Auto) 45.0 H (16.0-40.0) % [place] % (Auto) 8.5 (0.0-15.0) % Eos % (Auto) 1.0 (0.0-7.0) % Baso % (Auto) 0.4 (0.0-1.5) % Neut # (Auto) 2.2 (1.4-5.7) K/uL Lymph # (Auto) 2.2 (0.6-2.4) K/uL [place] # (Auto) 0.4 (0.0-0.8) K/uL Eos # (Auto) 0.1 (0.0-0.7) K/uL Baso # (Auto) 0.0 (0.0-0.1) K/uL Nucleated RBC % 0.0 /100WBC Nucleated RBCs # 0 K/uL INR 1.05 APTT 23.9 (18.6-31.3) SEC Sodium 141 (136-145) mmol/L Potassium 3.5 (3.5-5.1) mmol/L Chloride 108 H (98-107) mmol/L Carbon Dioxide 25.4 (21.0-32.0) mmol/L BUN 6 L (7.0-18.0) mg/dL Creatinine 0.6 (0.6-1.0) mg/dL Est Cr Clr Drug Dosing 140.82 mL/min Estimated GFR (MDRD) > 60.0 ml/min Glucose 110 H (74-106) mg/dL Calcium 8.0 L (8.5-10.1) mg/dL Blood Type Antibody Screen 01/28/20 Range/Units 05:23 WBC (4.0-11.0) K/uL RBC (4.30-5.90) M/uL Hgb (12.0-16.0) g/dL Hct (36.0-46.0) % MCV (80.0-98.0) fL MCH (27.0-32.0) pg MCHC (31.0-37.0) g/dL RDW Std Deviation (28.0-62.0) fl RDW Coeff of Erik (11.0-15.0) % Plt Count (150-400) K/uL MPV (7.40-12.00) fL Neut % (Auto) (48.0-80.0) % Lymph % (Auto) (16.0-40.0) % [place] % (Auto) (0.0-15.0) % Eos % (Auto) (0.0-7.0) % Baso % (Auto) (0.0-1.5) % Neut # (Auto) (1.4-5.7) K/uL Lymph # (Auto) (0.6-2.4) K/uL [place] # (Auto) (0.0-0.8) K/uL Eos # (Auto) (0.0-0.7) K/uL Baso # (Auto) (0.0-0.1) K/uL Nucleated RBC % /100WBC Nucleated RBCs # K/uL INR APTT (18.6-31.3) SEC Sodium (136-145) mmol/L Potassium (3.5-5.1) mmol/L Chloride (98-107) mmol/L Carbon Dioxide (21.0-32.0) mmol/L BUN (7.0-18.0) mg/dL Creatinine (0.6-1.0) mg/dL Est Cr Clr Drug Dosing mL/min Estimated GFR (MDRD) ml/min Glucose (74-106) mg/dL Calcium (8.5-10.1) mg/dL Blood Type O POSITIVE Antibody Screen NEGATIVE Meds: Medications Generic Name Dose Route Start Last Admin Trade Name Freq PRN Reason Stop Dose Admin Calcium Gluconate 1 gm 01/28/20 07:51 Calcium Gluconate IV ASDIRECTED PRN respiratory distress Magnesium Sulfate 20 gm in 500 mls @ 50 mls/hr 01/28/20 08:00 01/28/20 12:38 Magnesium Sulfate In Water Premix IV 2 gm/hr ASDIRECTED RANDY 50 mls/hr Administration Protocol 2 GM/HR Sodium Chloride 10 ml 01/28/20 05:12 01/28/20 05:31 Saline Flush FLUSH 10 ml ASDIRECTED PRN Administration Keep Vein Open Sodium Chloride 2.5 ml 01/28/20 05:12 01/28/20 05:31 Saline Flush FLUSH 2.5 ml ASDIRECTED PRN Administration Keep Vein Open Sodium Chloride 10 ml 01/28/20 07:51 Saline Flush FLUSH ASDIRECTED PRN Keep Vein Open Sodium Chloride 2.5 ml 01/28/20 07:51 Saline Flush FLUSH ASDIRECTED PRN Keep Vein Open Sodium Chloride 10 ml 01/28/20 07:51 Normal Saline IV ASDIRECTED PRN IV Use Discontinued Medications Generic Name Dose Route Start Last Admin Trade Name Freq PRN Reason Stop Dose Admin Sodium Chloride 1,000 mls @ 999 mls/hr 01/28/20 05:12 01/28/20 05:30 Normal Saline IV 01/28/20 06:12 999 mls/hr .Bolus ONE Administration Magnesium Sulfate 4 gm/ Premix 100 mls @ 300 mls/hr 01/28/20 07:51 01/28/20 12:11 IV 01/28/20 08:10 300 mls/hr BOLUS ONE Administration Magnesium Sulfate 4 gm/ Premix 100 mls @ 300 mls/hr 01/28/20 12:15 01/28/20 12:19 IV 01/28/20 12:34 Not Given BOLUS ONE Misoprostol 600 mcg 01/28/20 12:15 01/28/20 12:44 Cytotec PO 01/28/20 14:01 600 mcg Q8HR RANDY Administration Departure - Departure Time of Disposition: 07:50 Condition: Good - Discharge Information *PRESCRIPTION DRUG MONITORING PROGRAM REVIEWED*: Not Applicable *COPY OF PRESCRIPTION DRUG MONITORING REPORT IN PATIENT [place]: Not Applicable Sepsis Event Note (ED) - Focused Exam Vital Signs: Vital Signs Temp Pulse Resp BP Pulse Ox 01/28/20 07:33 79 147/95 H 99 01/28/20 07:12 71 134/91 H 98 01/28/20 06:38 73 18 152/85 H 98 01/28/20 06:03 96 152/106 H 98 01/28/20 05:33 97 162/101 H 84 L 01/28/20 05:10 36.3 C 96 17 169/103 H 97
[2020-01-28 05:42] LABS: BLOOD UREA NITROGEN,BUN 6 mg/dL (7.0-18.0); CARBON DIOXIDE,CO2 25.4 mmol/L (21.0-32.0); CHLORIDE,CL 108 mmol/L (98-107); GLUCOSE RANDOM 110 mg/dL (74-106); POTASSIUM,K 3.5 mmol/L (3.5-5.1); SODIUM,NA 141 mmol/L (136-145)
[2020-01-28] MEDS ORDERED: Magnesium Sulfate/Water 4 GM in Premix Bag 1 BAG IV ONE ×2 (07:51→12:15)
[2020-01-28] MEDS ORDERED: Calcium Gluconate 10% 1 GM/10 ML SDV IV PRN (07:51)
[2020-01-28] MEDS ORDERED: Sodium Chloride 0.9% 10 ML SDV IV PRN (07:51)
--- NOTE | 2020-01-28 08:00 | US ---
HISTORY: Profuse vaginal bleeding. Vaginal delivery 2 weeks prior. TECHNIQUE: Ultrasound of the pelvis using transabdominal and transvaginal technique. Color and spectral Doppler evaluation of the ovaries. COMPARISON: None. FINDINGS: Uterus measures 15.8 x 9.8 x 8.3 cm. Heterogeneous myometrial echogenicity. Endometrial echo complex thickness is 22 mm. Predominantly echogenic material within the endometrial canal with small anechoic spaces compatible fluid. 3.8 x 2.9 hyperechoic focus in the lower uterus/cervix. No color Doppler signal within the endometrial canal contents. Right ovary measures 2.5 x 2.4 x 2 cm. Normal appearance the right ovary. Blood flow present the right ovary with arterial and venous spectral Doppler waveforms. Left ovary is not visualized. Trace free fluid in the pelvis. IMPRESSION: 1. Enlarged uterus consistent with status. Complex echogenic material in the endometrial canal and cervix, favor blood clot, less likely retained products of conception. Consider set up and charger consultation. 2. Trace free fluid in the pelvis. Dictated by Ruperto Smith MD @ Jan 28 2020 7:44AM Signed by Dr. Ruperto Smith @ Jan 28 2020 8:00AM
[2020-01-28 08:42] LABS: BLOOD UREA NITROGEN,BUN 5 mg/dL (7.0-18.0); CARBON DIOXIDE,CO2 25.9 mmol/L (21.0-32.0); CHLORIDE,CL 111 mmol/L (98-107); GLUCOSE RANDOM 102 mg/dL (74-106); POTASSIUM,K 3.9 mmol/L (3.5-5.1); SODIUM,NA 144 mmol/L (136-145)
[2020-01-28] MEDS: Magnesium Sulfate/Water 20 GM/500 ML BAG IV SCH ×2 (12:38→23:30)
[2020-01-28] MEDS: Misoprostol 200 MCG Tab PO SCH ×2 (12:44→20:23)
--- NOTE | 2020-01-28 16:33 | PCM.HP.2 ---
H&P History of Present Illness - General Date of Service: 01/28/20 Admit Problem/Dx: Admission Diagnosis/Problem Admission Diagnosis/Problem Preeclampsia in period - History of Present Illness Initial Comments - Free Text/Narative: 29yo s/p uncomplicated at 40wks on 01/12/2020 presenting with vaginal bleeding. She reports was doing well , had light bleeding. Around 5 AM today she started to passed some blood clots and soaking a pad every hour. She denies feeling dizzy, weak, SOB or chest pain. She presented to the ED, pelvic US was completed and some heterogeenous debris was in the lower uterine segment consistent with blood clots, does not appear to have retained POCs. Hgb was stable also. Additionally her BP was significantly elevated 140-160s/80-100s. She did not have BP issues previously. She denies increase in swelling, headache, visual changes, SOB, chest pain or upper abdominal pain. - Related Data Allergies/Adverse Reactions: Allergies Allergy/AdvReac Type Severity Reaction Status Date / Time No Known Allergies Allergy Verified 01/28/20 05:33 Home Medications: Home Meds . [No Known Home Meds] 01/28/20 [History] Past Medical History - Past Health History Medical/Surgical History: Denies Medical/Surgical History HEENT History: Reports: None Cardiovascular History: Reports: None Respiratory History: Reports: None Gastrointestinal History: Reports: None Genitourinary History: Reports: None [employer] History: Reports: Musculoskeletal History: Reports: None Neurological History: Reports: None Psychiatric History: Reports: None Endocrine/Metabolic History: Reports: None Hematologic History: Reports: None Immunologic History: Reports: None Oncologic (Cancer) History: Reports: None Dermatologic History: Reports: None - Infectious Disease History Infectious Disease History: Reports: None Social & Family History - Tobacco Use Smoking Status *Q: Never Smoker - Caffeine Use Caffeine Use: Reports: None - Recreational Drug Use Recreational Drug Use: No H&P Review of Systems - Review of Systems: Review Of Systems: See Below General: Reports: No Symptoms HEENT: Reports: No Symptoms Pulmonary: Reports: No Symptoms Cardiovascular: Reports: No Symptoms Gastrointestinal: Reports: No Symptoms Genitourinary: Reports: Other (vaginal bleeding) Musculoskeletal: Reports: No Symptoms Skin: Reports: No Symptoms Psychiatric: Reports: No Symptoms Neurological: Reports: No Symptoms Hematologic/Lymphatic: Reports: No Symptoms Immunologic: Reports: No Symptoms Exam - Exam Exam: See Below - Vital Signs Vital Signs: Last Vital Signs Temp 36.3 C 01/28/20 05:10 Pulse 76 01/28/20 10:03 Resp 18 01/28/20 06:38 BP 127/86 01/28/20 10:03 Pulse Ox 100 01/28/20 11:00 Weight: 170 lb - Exam General: Alert, Oriented, Cooperative HEENT: Conjunctiva Clear, EOMI, Hearing Intact Neck: Supple, Trachea Midline Lungs: Clear to Auscultation Cardiovascular: Regular Rate, Regular Rhythm, Normal S1, Normal S2 GI/Abdominal Exam: Normal Bowel Sounds, Soft, Non-Tender, No Organomegaly, No Distention Back Exam: Normal Inspection, Full Range of Motion Extremities: Normal Inspection, Normal Range of Motion, Non-Tender, No Pedal Edema Skin: Warm, Dry, Intact Neurological: Reflexes Equal Bilateral (2+ ) Neuro Extensive - Mental Status: Alert, Oriented x3, Normal Mood/Affect Psychiatric: Alert, Normal Affect, Normal Mood - Patient Data Lab Results Last 24 hrs: Laboratory Results - last 24 hr 01/28/20 01/28/20 01/28/20 Range/Units 04:15 04:15 04:15 WBC 4.82 (4.0-11.0) K/uL RBC 3.46 L (4.30-5.90) M/uL Hgb 10.6 L (12.0-16.0) g/dL Hct 32.6 L (36.0-46.0) % MCV 94.2 (80.0-98.0) fL MCH 30.6 (27.0-32.0) pg MCHC 32.5 (31.0-37.0) g/dL RDW Std Deviation 50.5 (28.0-62.0) fl RDW Coeff of Erik 15 (11.0-15.0) % Plt Count 404 H (150-400) K/uL MPV 9.50 (7.40-12.00) fL Neut % (Auto) 45.1 L (48.0-80.0) % Lymph % (Auto) 45.0 H (16.0-40.0) % [place] % (Auto) 8.5 (0.0-15.0) % Eos % (Auto) 1.0 (0.0-7.0) % Baso % (Auto) 0.4 (0.0-1.5) % Neut # (Auto) 2.2 (1.4-5.7) K/uL Lymph # (Auto) 2.2 (0.6-2.4) K/uL [place] # (Auto) 0.4 (0.0-0.8) K/uL Eos # (Auto) 0.1 (0.0-0.7) K/uL Baso # (Auto) 0.0 (0.0-0.1) K/uL Nucleated RBC % 0.0 /100WBC Nucleated RBCs # 0 K/uL INR 1.05 APTT 23.9 (18.6-31.3) SEC Sodium 141 (136-145) mmol/L Potassium 3.5 (3.5-5.1) mmol/L Chloride 108 H (98-107) mmol/L Carbon Dioxide 25.4 (21.0-32.0) mmol/L BUN 6 L (7.0-18.0) mg/dL Creatinine 0.6 (0.6-1.0) mg/dL Est Cr Clr Drug Dosing 140.82 mL/min Estimated GFR (MDRD) > 60.0 ml/min Glucose 110 H (74-106) mg/dL Uric Acid (2.6-7.2) mg/dL Calcium 8.0 L (8.5-10.1) mg/dL Magnesium (1.8-2.4) mg/dL Total Bilirubin (0.2-1.0) mg/dL AST (15-37) IU/L ALT (14-63) IU/L Alkaline Phosphatase (46-116) U/L Total Protein (6.4-8.2) g/dL Albumin (3.4-5.0) g/dL Globulin (2.6-4.0) g/dL Albumin/Globulin Ratio (0.9-1.6) Ur Random Creatinine mg/dL U Random Total Protein (<11.9) mg/dL Protein/Creatinin Ratio SARS-CoV-2 RNA (NASIM) (NEGATIVE) Blood Type Antibody Screen 01/28/20 01/28/20 01/28/20 Range/Units 05:23 08:05 08:13 WBC (4.0-11.0) K/uL RBC (4.30-5.90) M/uL Hgb (12.0-16.0) g/dL Hct (36.0-46.0) % MCV (80.0-98.0) fL MCH (27.0-32.0) pg MCHC (31.0-37.0) g/dL RDW Std Deviation (28.0-62.0) fl RDW Coeff of Erik (11.0-15.0) % Plt Count (150-400) K/uL MPV (7.40-12.00) fL Neut % (Auto) (48.0-80.0) % Lymph % (Auto) (16.0-40.0) % [place] % (Auto) (0.0-15.0) % Eos % (Auto) (0.0-7.0) % Baso % (Auto) (0.0-1.5) % Neut # (Auto) (1.4-5.7) K/uL Lymph # (Auto) (0.6-2.4) K/uL [place] # (Auto) (0.0-0.8) K/uL Eos # (Auto) (0.0-0.7) K/uL Baso # (Auto) (0.0-0.1) K/uL Nucleated RBC % /100WBC Nucleated RBCs # K/uL INR APTT (18.6-31.3) SEC Sodium 144 (136-145) mmol/L Potassium 3.9 (3.5-5.1) mmol/L Chloride 111 H (98-107) mmol/L Carbon Dioxide 25.9 (21.0-32.0) mmol/L BUN 5 L (7.0-18.0) mg/dL Creatinine 0.5 L (0.6-1.0) mg/dL Est Cr Clr Drug Dosing 168.98 mL/min Estimated GFR (MDRD) > 60.0 ml/min Glucose 102 (74-106) mg/dL Uric Acid 2.8 (2.6-7.2) mg/dL Calcium 7.6 L (8.5-10.1) mg/dL Magnesium (1.8-2.4) mg/dL Total Bilirubin 0.2 (0.2-1.0) mg/dL AST 23 (15-37) IU/L ALT 21 (14-63) IU/L Alkaline Phosphatase 100 (46-116) U/L Total Protein 6.3 L (6.4-8.2) g/dL Albumin 2.9 L (3.4-5.0) g/dL Globulin 3.4 (2.6-4.0) g/dL Albumin/Globulin Ratio 0.9 (0.9-1.6) Ur Random Creatinine mg/dL U Random Total Protein (<11.9) mg/dL Protein/Creatinin Ratio SARS-CoV-2 RNA (NASIM) NEGATIVE (NEGATIVE) Blood Type O POSITIVE Antibody Screen NEGATIVE 01/28/20 01/28/20 01/28/20 Range/Units 08:13 13:23 14:05 WBC (4.0-11.0) K/uL RBC (4.30-5.90) M/uL Hgb (12.0-16.0) g/dL Hct (36.0-46.0) % MCV (80.0-98.0) fL MCH (27.0-32.0) pg MCHC (31.0-37.0) g/dL RDW Std Deviation (28.0-62.0) fl RDW Coeff of Erik (11.0-15.0) % Plt Count (150-400) K/uL MPV (7.40-12.00) fL Neut % (Auto) (48.0-80.0) % Lymph % (Auto) (16.0-40.0) % [place] % (Auto) (0.0-15.0) % Eos % (Auto) (0.0-7.0) % Baso % (Auto) (0.0-1.5) % Neut # (Auto) (1.4-5.7) K/uL Lymph # (Auto) (0.6-2.4) K/uL [place] # (Auto) (0.0-0.8) K/uL Eos # (Auto) (0.0-0.7) K/uL Baso # (Auto) (0.0-0.1) K/uL Nucleated RBC % /100WBC Nucleated RBCs # K/uL INR APTT (18.6-31.3) SEC Sodium (136-145) mmol/L Potassium (3.5-5.1) mmol/L Chloride (98-107) mmol/L Carbon Dioxide (21.0-32.0) mmol/L BUN (7.0-18.0) mg/dL Creatinine (0.6-1.0) mg/dL Est Cr Clr Drug Dosing mL/min Estimated GFR (MDRD) ml/min Glucose (74-106) mg/dL Uric Acid (2.6-7.2) mg/dL Calcium (8.5-10.1) mg/dL Magnesium 2.0 4.2 H (1.8-2.4) mg/dL Total Bilirubin (0.2-1.0) mg/dL AST (15-37) IU/L ALT (14-63) IU/L Alkaline Phosphatase (46-116) U/L Total Protein (6.4-8.2) g/dL Albumin (3.4-5.0) g/dL Globulin (2.6-4.0) g/dL Albumin/Globulin Ratio (0.9-1.6) Ur Random Creatinine 20.7 mg/dL U Random Total Protein 80.4 H (<11.9) mg/dL Protein/Creatinin Ratio 3.9 SARS-CoV-2 RNA (NASIM) (NEGATIVE) Blood Type Antibody Screen Result Diagrams: 01/28/20 04:15 01/28/20 08:13 Sepsis Event Note - Evaluation Sepsis Screening Result: No Definite Risk - Focused Exam Vital Signs: Vital Signs Temp Pulse Resp BP Pulse Ox Pulse Ox 01/28/20 11:00 100 01/28/20 10:03 76 127/86 98 01/28/20 09:33 86 158/104 H 98 01/28/20 09:06 83 166/109 H 98 01/28/20 08:33 83 134/90 97 01/28/20 08:03 86 141/88 H 99 01/28/20 07:33 79 147/95 H 99 01/28/20 07:12 71 134/91 H 98 01/28/20 06:38 73 18 152/85 H 98 01/28/20 06:03 96 152/106 H 98 01/28/20 05:33 97 162/101 H 84 L 01/28/20 05:10 36.3 C 96 17 169/103 H 97 Problem List Initiated/Reviewed/Updated: Yes Orders Last 24hrs: Active Orders 24 hr Category Date Time Status Patient Status [ADT] Routine ADT 01/28/20 07:51 Active Bedrest [RC] ASDIRECTED Care 01/28/20 07:51 Active Communication Order [RC] PRN Care 01/28/20 07:51 Active Communication Order [RC] PRN Care 01/28/20 07:51 Active Equipment to Bedside [RC] PRN Care 01/28/20 07:51 Active Height and Weight [RC] DAILY Care 01/28/20 07:51 Active Intake and Output [RC] Q1H Care 01/28/20 07:51 Active Notify Provider Status Change [RC] ASDIRECTED Care 01/28/20 07:57 Active Notify Provider [RC] PRN Care 01/28/20 07:51 Active Oxygen Therapy [RC] PRN Care 01/28/20 07:51 Active Vital Signs [RC] ASDIRECTED Care 01/28/20 07:51 Active Clear Liquid Diet [DIET] Diet 01/28/20 Breakfast Active CBC WITH AUTO DIFF [HEME] DAILY Lab 01/29/20 05:00 Ordered CBC WITH AUTO DIFF [HEME] DAILY Lab 01/30/20 05:00 Ordered CBC WITH AUTO DIFF [HEME] DAILY Lab 01/31/20 05:00 Ordered CMP [COMPREHENSIVE METABOLIC PN,CMP] [CHEM] DAILY Lab 01/29/20 05:00 Ordered CMP [COMPREHENSIVE METABOLIC PN,CMP] [CHEM] DAILY Lab 01/30/20 05:00 Ordered CMP [COMPREHENSIVE METABOLIC PN,CMP] [CHEM] DAILY Lab 01/31/20 05:00 Ordered MAGNESIUM [CHEM] Q6H Lab 01/28/20 20:00 Ordered MAGNESIUM [CHEM] Q6H Lab 01/29/20 02:00 Ordered MAGNESIUM [CHEM] Q6H Lab 01/29/20 08:00 Ordered URIC ACID [CHEM] DAILY Lab 01/29/20 05:00 Ordered URIC ACID [CHEM] DAILY Lab 01/30/20 05:00 Ordered URIC ACID [CHEM] DAILY Lab 01/31/20 05:00 Ordered Calcium Gluconate Med 01/28/20 07:51 Active 1 gm IV ASDIRECTED PRN Magnesium Sulfate/Water [Magnesium Sulfate in Water Med 01/28/20 08:00 Active Premix] 20 gm in 500 ml IV ASDIRECTED Sodium Chloride 0.9% [Normal Saline] [facility] 01/28/20 07:51 Active 10 ml IV ASDIRECTED PRN Sodium Chloride 0.9% [Saline Flush] [facility] 01/28/20 05:12 Active 10 ml FLUSH ASDIRECTED PRN Sodium Chloride 0.9% [Saline Flush] [facility] 01/28/20 07:51 Active 10 ml FLUSH ASDIRECTED PRN Sodium Chloride 0.9% [Saline Flush] [facility] 01/28/20 05:12 Active 2.5 ml FLUSH ASDIRECTED PRN Sodium Chloride 0.9% [Saline Flush] [facility] 01/28/20 07:51 Active 2.5 ml FLUSH ASDIRECTED PRN Deep Tendon Reflexes [WOMSER] [address] 01/28/20 08:00 Ordered Deep Tendon Reflexes [WOMSER] [address] 01/28/20 09:00 Ordered Deep Tendon Reflexes [WOMSER] [address] 01/28/20 10:00 Ordered Deep Tendon Reflexes [WOMSER] [address] 01/28/20 11:00 Ordered Deep Tendon Reflexes [WOMSER] [address] 01/28/20 12:00 Ordered Deep Tendon Reflexes [WOMSER] [address] 01/28/20 13:00 Ordered Deep Tendon Reflexes [WOMSER] [address] 01/28/20 14:00 Ordered Deep Tendon Reflexes [WOMSER] [address] 01/28/20 15:00 Ordered Deep Tendon Reflexes [WOMSER] [address] 01/28/20 16:00 Ordered Deep Tendon Reflexes [WOMSER] [address] 01/28/20 17:00 Ordered Deep Tendon Reflexes [WOMSER] [address] 01/28/20 18:00 Ordered Deep Tendon Reflexes [WOMSER] [address] 01/28/20 19:00 Ordered Deep Tendon Reflexes [WOMSER] [address] 01/28/20 20:00 Ordered Deep Tendon Reflexes [WOMSER] [address] 01/28/20 21:00 Ordered Deep Tendon Reflexes [WOMSER] [address] 01/28/20 22:00 Ordered Deep Tendon Reflexes [WOMSER] [address] 01/28/20 23:00 Ordered Deep Tendon Reflexes [WOMSER] Q1H Ot 01/29/20 00:00 Ordered Deep Tendon Reflexes [WOMSER] Q1 Ot 01/29/20 01:00 Ordered Deep Tendon Reflexes [WOMSER] Q1 Ot 01/29/20 02:00 Ordered Deep Tendon Reflexes [WOMSER] Q1 Ot 01/29/20 03:00 Ordered Deep Tendon Reflexes [WOMSER] Q1 Ot 01/29/20 04:00 Ordered Deep Tendon Reflexes [WOMSER] Q1 Ot 01/29/20 05:00 Ordered Deep Tendon Reflexes [WOMSER] Q1 Ot 01/29/20 06:00 Ordered Deep Tendon Reflexes [WOMSER] Q1 Ot 01/29/20 07:00 Ordered Peripheral IV Insertion Adult [OM.PC] Routine Ot 01/28/20 07:51 Ordered Saline Lock Insert [OM.PC] Stat Oth 01/28/20 05:12 Ordered Medication Orders Calcium Gluconate (Calcium Gluconate) 1 gm IV ASDIRECTED PRN PRN Reason: respiratory distress Magnesium Sulfate (Magnesium Sulfate In Water Premix) 20 gm in 500 mls @ 50 mls/hr IV ASDIRECTED [facility]; Protocol Last Admin: 01/28/20 12:38 Dose: 2 gm/hr, 50 mls/hr Documented by: MARTINAIGLFLORA Sodium Chloride (Saline Flush) 10 ml FLUSH ASDIRECTED PRN PRN Reason: Keep Vein Open Last Admin: 01/28/20 05:31 Dose: 10 ml Documented by: FEDLKER Sodium Chloride (Saline Flush) 2.5 ml FLUSH ASDIRECTED PRN PRN Reason: Keep Vein Open Last Admin: 01/28/20 05:31 Dose: 2.5 ml Documented by: FEDLKER Sodium Chloride (Saline Flush) 10 ml FLUSH ASDIRECTED PRN PRN Reason: Keep Vein Open Sodium Chloride (Saline Flush) 2.5 ml FLUSH ASDIRECTED PRN PRN Reason: Keep Vein Open Sodium Chloride (Normal Saline) 10 ml IV ASDIRECTED PRN PRN Reason: IV Use Assessment/Plan Comment:: 29yo present with preeclampsia and vaginal bleeding. Admitted for magnesium sulfate for seizure prophylaxis. 1. PP preeclampsia - BP mostly mild range, few were severe range. Otherwise asymptomatic. Normal labs. - Magnesium 4g loading dose and 2g/hr maintanenance. Will monitor closely for worsening symptoms. Neuro checks and I&O per protocol. Mag level every 6 hours. Plan to continue for 24 hours - may pump for baby - preE labs daily 2. Vaginal bleeding - bleeding has decreased, Hgb stable - Pelvic US consistent with small amount of blood clots, low suspicion for retained POCs - Will give cytotec 600mcg PO x2 doses - monitor closely, repeat CBC in AM Patient seen in the ED at 7AM, documentation completed after.
[2020-01-28] MEDS ORDERED: Misoprostol 200 MCG Tab PO SCH (21:00)
[2020-01-29 02:39] LABS: BLOOD UREA NITROGEN,BUN 4 mg/dL (7.0-18.0); CARBON DIOXIDE,CO2 25.7 mmol/L (21.0-32.0); CHLORIDE,CL 105 mmol/L (98-107); GLUCOSE RANDOM 126 mg/dL (74-106); POTASSIUM,K 3.4 mmol/L (3.5-5.1); SODIUM,NA 141 mmol/L (136-145)
--- NOTE | 2020-01-29 10:15 | PCM.PN ---
- General Info Date of Service: 01/29/20 Admission Dx/Problem (Free Text): Admission Diagnosis/Problem Admission Diagnosis/Problem Preeclampsia in period Subjective Update: Resting comfortably in bed during rounds this morning. Minimal vaginal bleeding overnight. Ambulating and voiding without difficulty. Tolerating oral diet without nausea/vomiting. Denies fever/chills, lightheadedness, dizziness, headaches, visual changes or RUQ pain. Functional Status: Reports: Pain Controlled - Patient Data Vitals - Most Recent: Last Vital Signs Temp 98.6 F 01/29/20 08:00 Pulse 76 01/28/20 10:03 Resp 17 01/29/20 09:00 BP 125/79 01/29/20 09:00 Pulse Ox 98 01/29/20 09:00 Weight - Most Recent: 164 lb 12.8 oz I&O - Last 24 Hours: Intake & Output 01/28/20 01/29/20 01/29/20 22:59 06:59 14:59 Intake Total 339 751 900 Output Total 3200 1350 1100 Balance -2861 -599 -200 Lab Results Last 24 Hours: Laboratory Results - last 24 hr 01/28/20 01/28/20 01/28/20 Range/Units 13:23 14:05 20:16 WBC (4.0-11.0) K/uL RBC (4.30-5.90) M/uL Hgb (12.0-16.0) g/dL Hct (36.0-46.0) % MCV (80.0-98.0) fL MCH (27.0-32.0) pg MCHC (31.0-37.0) g/dL RDW Std Deviation (28.0-62.0) fl RDW Coeff of Erik (11.0-15.0) % Plt Count (150-400) K/uL MPV (7.40-12.00) fL Neut % (Auto) (48.0-80.0) % Lymph % (Auto) (16.0-40.0) % [place] % (Auto) (0.0-15.0) % Eos % (Auto) (0.0-7.0) % Baso % (Auto) (0.0-1.5) % Neut # (Auto) (1.4-5.7) K/uL Lymph # (Auto) (0.6-2.4) K/uL [place] # (Auto) (0.0-0.8) K/uL Eos # (Auto) (0.0-0.7) K/uL Baso # (Auto) (0.0-0.1) K/uL Nucleated RBC % /100WBC Nucleated RBCs # K/uL Sodium (136-145) mmol/L Potassium (3.5-5.1) mmol/L Chloride (98-107) mmol/L Carbon Dioxide (21.0-32.0) mmol/L BUN (7.0-18.0) mg/dL Creatinine (0.6-1.0) mg/dL Est Cr Clr Drug Dosing mL/min Estimated GFR (MDRD) ml/min Glucose (74-106) mg/dL Uric Acid (2.6-7.2) mg/dL Calcium (8.5-10.1) mg/dL Magnesium 4.2 H 5.1 H (1.8-2.4) mg/dL Total Bilirubin (0.2-1.0) mg/dL AST (15-37) IU/L ALT (14-63) IU/L Alkaline Phosphatase (46-116) U/L Total Protein (6.4-8.2) g/dL Albumin (3.4-5.0) g/dL Globulin (2.6-4.0) g/dL Albumin/Globulin Ratio (0.9-1.6) Ur Random Creatinine 20.7 mg/dL U Random Total Protein 80.4 H (<11.9) mg/dL Protein/Creatinin Ratio 3.9 01/29/20 01/29/20 01/29/20 Range/Units 02:10 02:10 02:10 WBC 5.40 (4.0-11.0) K/uL RBC 3.06 L (4.30-5.90) M/uL Hgb 9.6 L (12.0-16.0) g/dL Hct 28.5 L (36.0-46.0) % MCV 93.1 (80.0-98.0) fL MCH 31.4 (27.0-32.0) pg MCHC 33.7 (31.0-37.0) g/dL RDW Std Deviation 51.1 (28.0-62.0) fl RDW Coeff of Erik 15 (11.0-15.0) % Plt Count 370 (150-400) K/uL MPV 9.00 (7.40-12.00) fL Neut % (Auto) 58.9 (48.0-80.0) % Lymph % (Auto) 30.0 (16.0-40.0) % [place] % (Auto) 9.6 (0.0-15.0) % Eos % (Auto) 1.3 (0.0-7.0) % Baso % (Auto) 0.2 (0.0-1.5) % Neut # (Auto) 3.2 (1.4-5.7) K/uL Lymph # (Auto) 1.6 (0.6-2.4) K/uL [place] # (Auto) 0.5 (0.0-0.8) K/uL Eos # (Auto) 0.1 (0.0-0.7) K/uL Baso # (Auto) 0.0 (0.0-0.1) K/uL Nucleated RBC % 0.0 /100WBC Nucleated RBCs # 0 K/uL Sodium 141 (136-145) mmol/L Potassium 3.4 L (3.5-5.1) mmol/L Chloride 105 (98-107) mmol/L Carbon Dioxide 25.7 (21.0-32.0) mmol/L BUN 4 L (7.0-18.0) mg/dL Creatinine 0.6 (0.6-1.0) mg/dL Est Cr Clr Drug Dosing 135.75 mL/min Estimated GFR (MDRD) > 60.0 ml/min Glucose 126 H (74-106) mg/dL Uric Acid 3.3 (2.6-7.2) mg/dL Calcium 7.0 L (8.5-10.1) mg/dL Magnesium 5.8 H (1.8-2.4) mg/dL Total Bilirubin 0.3 (0.2-1.0) mg/dL AST 21 (15-37) IU/L ALT 18 (14-63) IU/L Alkaline Phosphatase 105 (46-116) U/L Total Protein 6.0 L (6.4-8.2) g/dL Albumin 2.9 L (3.4-5.0) g/dL Globulin 3.1 (2.6-4.0) g/dL Albumin/Globulin Ratio 0.9 (0.9-1.6) Ur Random Creatinine mg/dL U Random Total Protein (<11.9) mg/dL Protein/Creatinin Ratio 01/28/ Range/Units 08:21 WBC (4.0-11.0) K/uL RBC (4.30-5.90) M/uL Hgb (12.0-16.0) g/dL Hct (36.0-46.0) % MCV (80.0-98.0) fL MCH (27.0-32.0) pg MCHC (31.0-37.0) g/dL RDW Std Deviation (28.0-62.0) fl RDW Coeff of Erik (11.0-15.0) % Plt Count (150-400) K/uL MPV (7.40-12.00) fL Neut % (Auto) (48.0-80.0) % Lymph % (Auto) (16.0-40.0) % [place] % (Auto) (0.0-15.0) % Eos % (Auto) (0.0-7.0) % Baso % (Auto) (0.0-1.5) % Neut # (Auto) (1.4-5.7) K/uL Lymph # (Auto) (0.6-2.4) K/uL [place] # (Auto) (0.0-0.8) K/uL Eos # (Auto) (0.0-0.7) K/uL Baso # (Auto) (0.0-0.1) K/uL Nucleated RBC % /100WBC Nucleated RBCs # K/uL Sodium (136-145) mmol/L Potassium (3.5-5.1) mmol/L Chloride (98-107) mmol/L Carbon Dioxide (21.0-32.0) mmol/L BUN (7.0-18.0) mg/dL Creatinine (0.6-1.0) mg/dL Est Cr Clr Drug Dosing mL/min Estimated GFR (MDRD) ml/min Glucose (74-106) mg/dL Uric Acid (2.6-7.2) mg/dL Calcium (8.5-10.1) mg/dL Magnesium 5.8 H (1.8-2.4) mg/dL Total Bilirubin (0.2-1.0) mg/dL AST (15-37) IU/L ALT (14-63) IU/L Alkaline Phosphatase (46-116) U/L Total Protein (6.4-8.2) g/dL Albumin (3.4-5.0) g/dL Globulin (2.6-4.0) g/dL Albumin/Globulin Ratio (0.9-1.6) Ur Random Creatinine mg/dL U Random Total Protein (<11.9) mg/dL Protein/Creatinin Ratio Med Orders - Current: Current Medications Calcium Gluconate (Calcium Gluconate) 1 gm IV ASDIRECTED PRN PRN Reason: respiratory distress Magnesium Sulfate (Magnesium Sulfate In Water Premix) 20 gm in 500 mls @ 50 mls/hr IV ASDIRECTED [facility]; Protocol Last Admin: 01/28/20 23:30 Dose: 2 gm/hr, 50 mls/hr Documented by: Sodium Chloride (Saline Flush) 10 ml FLUSH ASDIRECTED PRN PRN Reason: Keep Vein Open Last Admin: 01/28/20 05:31 Dose: 10 ml Documented by: Sodium Chloride (Saline Flush) 2.5 ml FLUSH ASDIRECTED PRN PRN Reason: Keep Vein Open Last Admin: 01/28/20 05:31 Dose: 2.5 ml Documented by: Sodium Chloride (Saline Flush) 10 ml FLUSH ASDIRECTED PRN PRN Reason: Keep Vein Open Sodium Chloride (Saline Flush) 2.5 ml FLUSH ASDIRECTED PRN PRN Reason: Keep Vein Open Sodium Chloride (Normal Saline) 10 ml IV ASDIRECTED PRN PRN Reason: IV Use Discontinued Medications Sodium Chloride (Normal Saline) 1,000 mls @ 999 mls/hr IV .Bolus ONE Stop: 01/28/20 06:12 Last Admin: 01/28/20 05:30 Dose: 999 mls/hr Documented by: Magnesium Sulfate 4 gm/ Premix 100 mls @ 300 mls/hr IV BOLUS ONE Stop: 01/28/20 08:10 Last Admin: 01/28/20 12:11 Dose: 300 mls/hr Documented by: Magnesium Sulfate 4 gm/ Premix 100 mls @ 300 mls/hr IV BOLUS ONE Stop: 01/28/20 12:34 Last Admin: 01/28/20 12:19 Dose: Not Given Documented by: Misoprostol (Cytotec) 600 mcg PO Q8HR [facility] Stop: 01/28/20 14:01 Last Admin: 01/28/20 20:23 Dose: Not Given Documented by: Misoprostol (Cytotec) 600 mcg PO Q8HR [facility] Stop: 01/28/20 21:01 Last Admin: 01/28/20 21:27 Dose: 600 mcg Documented by: - Exam General: Alert, Oriented Lungs: Normal Respiratory Effort Cardiovascular: Regular Rate GI/Abdominal Exam: Soft, Non-Tender, No Distention Back Exam: Full Range of Motion Extremities: Normal Inspection, Normal Range of Motion, Non-Tender, No Pedal Edema Skin: Warm, Dry, Intact Neurological: No New Focal Deficit Psy/Mental Status: Alert, Normal Affect, Normal Mood Sepsis Event Note - Evaluation Sepsis Screening Result: No Definite Risk - Focused Exam Vital Signs: Vital Signs Temp Resp BP Pulse Ox 01/29/20 09:00 17 125/79 98 01/29/20 08:00 98.6 F 19 126/87 99 01/29/20 07:01 20 111/90 97 01/29/20 07:00 17 126/87 98 01/29/20 06:00 18 126/87 95 01/29/20 05:00 20 135/88 96 01/29/20 04:00 98.6 F 19 118/80 98 01/29/20 03:00 19 133/82 96 01/29/20 02:00 22 H 134/83 96 01/29/20 01:00 21 H 143/86 H 99 01/29/20 00:00 99.0 F 22 H 134/83 96 01/28/20 23:00 20 135/87 98 - Problem List Review Problem List Initiated/Reviewed/Updated: Yes - Plan Plan:: 29yo present with preeclampsia and vaginal bleeding. Admitted for magnesium sulfate for seizure prophylaxis. 1. PP preeclampsia - BP normotensive overnight and this AM. Asymptomatic. Normal labs. - Magnesium sulfate started at 1200 on 01/28/2020, will continue for 24hrs. - May pump for baby - PreE labs daily - within normal limits today 2. Vaginal bleeding - Bleeding has decreased, Hgb stable - Pelvic US consistent with small amount of blood clots, low suspicion for retained POCs - s/p cytotec 600mcg PO x2 doses Dispo: stable. Anticipate discharge after magnesium infusion is complete today. Patient to follow up at [facility] on Wednesday for blood pressure check. Reviewed precautions for when to notify the clinic or present to ED including severe headache, vision changes, RUQ pain, heavy bleeding with filling >1 pad/hr for more than 2 hours. Questions elicited and answered.
== END 2020-01-29 11:20 | disposition home or self-care (01) ==
LOC: MW.ED 05:10 → MW.ICU 07:51
PROVIDERS: ADMIT Obstetrics & Gynecology; ATTEND Obstetrics & Gynecology
DX: O14.95 Unspecified pre-eclampsia, complicating the puerperium (principal); O72.1 Other immediate postpartum hemorrhage; Z20.828 Contact with and (suspected) exposure to other viral communicable diseases; Z37.0 Single live birth
CPT/HCPCS: 36415; 76856; 80048; 80053; 82570; 83735; 84156; 84550; 85025; 85610; 85730; 86850; 86900; 86901; 87635; 96361; 96365; 96366; 96376; 99285; A9270; G0378; J3475; J7030; 96360; 99283; U0002

== ENCOUNTER 2021-04-06 23:02 | Inpatient (IN) | payer SELFPAY ==
[2021-04-06] MEDS ORDERED: Lactated Ringers 1,000 ML IV SCH (23:20)
[2021-04-06] MEDS ORDERED: Lidocaine 1% 20 ML MDV ONE (23:35)
--- NOTE | 2021-04-06 23:35 | PCM.LDHP ---
L&D History of Present Illness - General Date of Service: 04/06/21 Admit Problem/Dx: Admission Diagnosis/Problem Admission Diagnosis/Problem Source of Information: Patient History Limitations: Reports: No Limitations - History of Present Illness Improves with: Reports: None Worsens with: Reports: None Associated Symptoms: Reports: N - Related Data Allergies/Adverse Reactions: Allergies Allergy/AdvReac Type Severity Reaction Status Date / Time No Known Allergies Allergy Verified 01/28/20 05:33 Home Medications: Home Meds . [No Known Home Meds] 01/28/20 [History] Past Medical History - Past Health History Medical/Surgical History: Denies Medical/Surgical History HEENT History: Reports: None Cardiovascular History: Reports: None Respiratory History: Reports: None Gastrointestinal History: Reports: None Genitourinary History: Reports: None HAND SANDER History: Reports: Musculoskeletal History: Reports: None Neurological History: Reports: None Psychiatric History: Reports: None Endocrine/Metabolic History: Reports: None Hematologic History: Reports: None Immunologic History: Reports: None Oncologic (Cancer) History: Reports: None Dermatologic History: Reports: None - Infectious Disease History Infectious Disease History: Reports: None Social & Family History - Caffeine Use Caffeine Use: Reports: None H&P Review of Systems - Review of Systems: Review Of Systems: See Below General: Reports: No Symptoms HEENT: Reports: No Symptoms Pulmonary: Reports: No Symptoms Cardiovascular: Reports: No Symptoms Gastrointestinal: Reports: No Symptoms Genitourinary: Reports: No Symptoms Musculoskeletal: Reports: No Symptoms Skin: Reports: No Symptoms Psychiatric: Reports: No Symptoms Neurological: Reports: No Symptoms Hematologic/Lymphatic: Reports: No Symptoms Immunologic: Reports: No Symptoms L&D Exam - Exam Exam: See Below - OB Specific Contraction Intensity: Moderate to Strong Movement: Active Heart Tones: Present Presentation: Vertex - Caal Score Caal Score Cervix Position: Anterior Caal Score Consistency: Soft Caal Score Effacement: >80% Caal Score Dilation: > 5 cm Caal Score 's Station: -1 ,0 Caal Score Total: 12 - Exam General: Alert, Oriented HEENT: PERRLA, Conjunctiva Clear, EACs Clear, EOMI, Hearing Intact, Mucosa Moist & Klein, Nares Patent, Normal Nasal Septum, Posterior Pharynx Clear, TMs Clear Neck: Supple, Trachea Midline Lungs: Clear to Auscultation, Normal Respiratory Effort Cardiovascular: Regular Rate, Regular Rhythm GI/Abdominal Exam: Normal Bowel Sounds, Soft, Non-Tender, No Organomegaly, No Distention, No Abnormal Bruit, No Mass, Pelvis Stable Rectal Exam: Normal Exam, Normal Rectal Tone Genitourinary: Normal external exam, Normal bimanual exam, Normal speculum exam Back Exam: Normal Inspection, Full Range of Motion Extremities: Normal Inspection, Normal Range of Motion, Non-Tender, No Pedal Edema, Normal Capillary Refill Skin: Warm, Dry, Intact Neurological: Cranial Nerves Intact, Reflexes Equal Bilateral Psychiatric: Alert, Normal Affect, Normal Mood Problem List Initiated/Reviewed/Updated: Yes Assessment/Plan Comment:: Termpregnancy in active labor.
[2021-04-06] MEDS ORDERED: Oxytocin/0.9 % Sodium Chloride 30 UNIT/500 ML BAG IV SCH (23:45)
[2021-04-06] MEDS ORDERED: Oxytocin 10 Units/1 ML SDV ONE (23:46)
[2021-04-06] MEDS ORDERED: Lanolin 100% Cream 7 GM Tube TOP PRN (23:49)
[2021-04-06] MEDS ORDERED: Docusate Sodium 100 MG Cap PO PRN (23:49)
[2021-04-06] MEDS ORDERED: oxyCODONE 5 MG Tab PO PRN (23:49)
[2021-04-06] MEDS ORDERED: Ibuprofen 400 MG Tab PO PRN (23:49)
[2021-04-06] MEDS ORDERED: Witch Hazel Medicated Pads 40/Jar TOP PRN (23:49)
[2021-04-06] MEDS ORDERED: Acetaminophen 500 MG Tab PO PRN ×2 (23:49)
[2021-04-06] MEDS ORDERED: Benzocaine/Menthol 20%-0.5% Spray 78 GM Cannister TOP PRN (23:49)
[2021-04-06] MEDS ORDERED: Ibuprofen 800 MG Tab PO PRN (23:49)
[2021-04-06] MEDS ORDERED: Bisacodyl 10 MG Supp RECTAL PRN (23:49)
[2021-04-06] MEDS ORDERED: Oxytocin 10 Units/1 ML SDV IM ONE (23:55)
--- NOTE | 2021-04-07 07:18 | OR ---
SURGEON: Ronal Banda MD DATE OF PROCEDURE: 04/06/2021 DELIVERY NOTE Ms. David is 30-year-old. She is para 2-0-0-2. She is 40+1 weeks. She is followed in our clinic. She had no complication, and her prenatally care was uncomplicated. She was admitted in active labor. At the time of admission, she was 8 to 9 cm, complete vertex, and zero station. After that, I did an artificial rupture of the membrane. Meconium-tinged amniotic fluid was noticed, and the patient became complete, and with 2 pushes, she was able to accomplish normal spontaneous vaginal delivery of a male fetus, cried immediately. score reported to be 8 and 9. The weight is not available at the time of dictation. The placenta delivered spontaneous, complete, and intact. There was no perineal, labial, or vaginal laceration. Estimated blood loss is 250 to 300 mL. heart rate was category 1 through the process of the short labor. There was no complication in the labor and delivery of this patient. BONNIE / FLOWER /[id number]
--- NOTE | 2021-04-08 09:19 | PCM.DCSUM1 ---
Discharge Summary - Hospital Course Diagnosis: Stroke: No - Discharge Data Discharge Date: 04/08/21 Discharge Disposition: Home, Self-Care 01 Condition: Good - Referral to Home Health Primary Care Physician: PCP None - Patient Instructions Diet: Usual Diet as Tolerated Activity: As Tolerated Driving: Do Not Drive Showering/Bathing: May Shower - Discharge Plan Home Medications: Home Meds . [No Known Home Meds] 01/28/20 [History] Referrals: Ronal Banda MD [Physician] - 05/19/21 10:45 am (You may bring your with to your appointment. Bring insurance and ID cards with you. Masks are required. ) - Discharge Summary/Plan Comment DC Time >30 min.: Yes Total # of Minutes for Discharge Time: 30 - General Info Date of Service: 04/08/21 Functional Status: Reports: Pain Controlled - Review of Systems General: Reports: No Symptoms HEENT: Reports: No Symptoms Pulmonary: Reports: No Symptoms Cardiovascular: Reports: No Symptoms Gastrointestinal: Reports: No Symptoms Genitourinary: Reports: No Symptoms Musculoskeletal: Reports: No Symptoms Skin: Reports: No Symptoms Neurological: Reports: No Symptoms Psychiatric: Reports: No Symptoms - Patient Data Vitals - Most Recent: Last Vital Signs Temp 36.4 C 04/08/21 04:15 Pulse 72 04/08/21 04:15 Resp 18 04/08/21 04:15 BP 125/85 04/08/21 04:15 Pulse Ox 98 04/08/21 04:15 Weight - Most Recent: 86.183 kg Lab Results - Last 24 hrs: Laboratory Results - last 24 hr 04/07/21 Range/Units 06:48 Hgb 10.8 L (12.0-16.0) g/dL Hct 31.3 L (36.0-46.0) % Med Orders - Current: Current Medications Acetaminophen (Acetaminophen 500 Mg Tab) 500 mg PO Q4H PRN PRN Reason: Pain (mild 1-3) Acetaminophen (Acetaminophen 500 Mg Tab) 1,000 mg PO Q4H PRN PRN Reason: Pain (mild 1-3) Last Admin: 04/07/21 03:10 Dose: 1,000 mg Documented by: Benzocaine/Menthol (Benzocaine/Menthol 20%-0.5% [place] 78 Gm Cannister) 78 gm TOP ASDIRECTED PRN PRN Reason: Perineal Comfort Measure Last Admin: 04/07/21 03:09 Dose: 1 canister Documented by: Bisacodyl (Bisacodyl 10 Mg Supp) 10 mg RECTAL ONETIME PRN PRN Reason: Constipation Docusate Sodium (Docusate Sodium 100 Mg Cap) 100 mg PO Q12H PRN PRN Reason: Constipation Last Admin: 04/08/21 09:17 Dose: 100 mg Documented by: Emollient Ointment (Lanolin 100% Cream 7 Gm Tube) 0 gm TOP ASDIRECTED PRN PRN Reason: Sore Nipples Last Admin: 04/07/21 03:07 Dose: 1 tube Documented by: Oxytocin/Sodium Chloride (Oxytocin 30 Unit In Ns 0.9% 500 Ml Premix) 30 unit in 500 mls @ 2 mls/hr IV TITRATE RANDY; Protocol Last Admin: 04/07/21 00:12 Dose: 500 munits/min, 500 mls/hr Documented by: Lactated Ringer's (Ringers, Lactated) 1,000 mls @ 150 mls/hr IV ASDIRECTED RANDY Last Admin: 04/06/21 23:20 Dose: 150 mls/hr Documented by: Ibuprofen (Ibuprofen 400 Mg Tab) 400 mg PO Q4H PRN PRN Reason: Pain (mild 1-3) Ibuprofen (Ibuprofen 800 Mg Tab) 800 mg PO Q6H PRN PRN Reason: Cramping Last Admin: 04/07/21 03:09 Dose: 800 mg Documented by: Oxycodone HCl (Oxycodone 5 Mg Tab) 5 mg PO Q2H PRN PRN Reason: Pain (severe 7-10) Witch Nena (Witch Nena Medicated Pads 40/Jar) 1 pad TOP ASDIRECTED PRN PRN Reason: comfort care Last Admin: 04/07/21 03:08 Dose: 1 tub Documented by: Discontinued Medications Lidocaine HCl (Lidocaine 1% 20 Ml Mdv) Confirm Administered Dose 20 ml .ROUTE .STK-MED ONE Stop: 04/06/21 23:36 Oxytocin (Oxytocin 10 Units/1 Ml Sdv) Confirm Administered Dose 10 unit .ROUTE .STK-MED ONE Stop: 04/06/21 23:47 Last Admin: 04/06/21 23:47 Dose: 10 unit Documented by: Oxytocin (Oxytocin 10 Units/1 Ml Sdv) 10 unit IM ONETIME ONE Stop: 04/06/21 23:56 - Exam General: Reports: Alert, Oriented HEENT: Reports: Pupils Equal, Pupils Reactive, EOMI, Mucous Membr. Moist/[place] Neck: Reports: Supple Lungs: Reports: Clear to Auscultation, Normal Respiratory Effort Cardiovascular: Reports: Regular Rate, Regular Rhythm GI/Abdominal Exam: Normal Bowel Sounds, Soft, Non-Tender, No Organomegaly, No Distention, No Abnormal Bruit, No Mass, Pelvis Stable (Female) Exam: Normal External Exam, Normal Speculum Exam, Normal Bimanual Ex am Rectal (Female) Exam: Normal Exam, Normal Rectal Tone Back Exam: Reports: Normal Inspection, Full Range of Motion Extremities: Normal Inspection, Normal Range of Motion, Non-Tender, No Pedal Edema, Normal Capillary Refill Skin: Reports: Warm, Dry, Intact Wound/Incisions: Reports: Healing Well Neurological: Reports: No New Focal Deficit Psy/Mental Status: Reports: Alert, Normal Affect, Normal Mood
== END 2021-04-08 13:04 | disposition home or self-care (01) | DRG 807 ==
LOC: MW.OB 23:02 → MW.OBCHECK 23:02 → MW.OB 23:17 → OBSVTOIN 23:44 → MW.OB 23:49 → MW.OBCHECK 23:49 → MW.OB 04-07 03:30
PROVIDERS: ADMIT Obstetrics & Gynecology; ATTEND Obstetrics & Gynecology
PROC: 10E0XZZ Delivery of Products of Conception, External Approach (ICD-10-PCS; principal; 2021-04-06)
PROC: 10907ZC Drainage of Amniotic Fluid, Therapeutic from Products of Conception, Via Natural or Artificial Opening (ICD-10-PCS; 2021-04-06)
DX: O77.0 Labor and delivery complicated by meconium in amniotic fluid (principal); Z37.0 Single live birth; Z3A.40 40 weeks gestation of pregnancy; Z20.822 Contact with and (suspected) exposure to COVID-19
CPT/HCPCS: 36415; 59025; 59409; 85014; 85018; 85027; 86592; 86850; 86900; 86901; A9270-GY; J2590; J7120; U0002

== ENCOUNTER 2022-07-03 17:09 | Emergency (ER) | payer OTHER | END 2022-07-03 17:39 | disposition home or self-care (01) | LOC: MW.ED 17:09 | DX: S13.4XXA Sprain of ligaments of cervical spine, initial encounter (principal); V89.2XXA Person injured in unspecified motor-vehicle accident, traffic, initial encounter; Y92.410 Unspecified street and highway as the place of occurrence of the external cause | CPT/HCPCS: 99283 ==

== ENCOUNTER 2022-08-25 17:13 | Emergency (ER) | payer OTHER | END 2022-08-25 19:31 | disposition left against medical advice (07) | LOC: MW.ED 17:13 | DX: Z53.21 Procedure and treatment not carried out due to patient leaving prior to being seen by health care provider (principal) ==